=== PATIENT | female | born 1970 | race Caucasian/White ===

== ENCOUNTER → 2019-08-08 13:08 | Outpatient (BNVA) | payer MEDICARE, MEDICAID, SELFPAY | PROVIDERS: Family Provider Student in an Organized Health Care Education/Training Program; PCP Student in an Organized Health Care Education/Training Program; Visit Provider Nurse Practitioner | DX: M47.816 Spondylosis without myelopathy or radiculopathy, lumbar region (principal); M54.16 Radiculopathy, lumbar region; M79.7 Fibromyalgia; M25.511 Pain in right shoulder; M25.512 Pain in left shoulder; F17.210 Nicotine dependence, cigarettes, uncomplicated; Z79.891 Long term (current) use of opiate analgesic | CPT/HCPCS: 99214 ==

== ENCOUNTER → 2019-12-08 09:38 | Outpatient (BNVA) | payer MEDICARE, MEDICAID, SELFPAY | PROVIDERS: Family Provider Student in an Organized Health Care Education/Training Program; PCP Student in an Organized Health Care Education/Training Program; Visit Provider Anesthesiology | DX: G89.29 Other chronic pain (principal); M54.41 Lumbago with sciatica, right side; M54.42 Lumbago with sciatica, left side; M47.816 Spondylosis without myelopathy or radiculopathy, lumbar region; M54.16 Radiculopathy, lumbar region; M54.9 Dorsalgia, unspecified; M79.7 Fibromyalgia; M25.512 Pain in left shoulder; F17.210 Nicotine dependence, cigarettes, uncomplicated; Z79.891 Long term (current) use of opiate analgesic | CPT/HCPCS: 99214 ==

== ENCOUNTER → 2020-01-19 09:13 | Outpatient (BNVA) | payer MEDICARE, MEDICAID, SELFPAY | PROVIDERS: Family Provider Student in an Organized Health Care Education/Training Program; PCP Student in an Organized Health Care Education/Training Program; Visit Provider Anesthesiology | DX: G89.29 Other chronic pain (principal); M47.816 Spondylosis without myelopathy or radiculopathy, lumbar region; M54.16 Radiculopathy, lumbar region; M54.9 Dorsalgia, unspecified; M79.7 Fibromyalgia; F17.210 Nicotine dependence, cigarettes, uncomplicated; Z79.891 Long term (current) use of opiate analgesic | CPT/HCPCS: 99213; 99214 ==

== ENCOUNTER → 2020-03-20 13:37 | Outpatient (BNVA) | payer MEDICARE, MEDICAID, SELFPAY | PROVIDERS: Family Provider Student in an Organized Health Care Education/Training Program; PCP Student in an Organized Health Care Education/Training Program; Visit Provider Anesthesiology | DX: G89.29 Other chronic pain (principal); M47.816 Spondylosis without myelopathy or radiculopathy, lumbar region; M54.16 Radiculopathy, lumbar region; M54.9 Dorsalgia, unspecified; M79.7 Fibromyalgia; F17.210 Nicotine dependence, cigarettes, uncomplicated; Z79.891 Long term (current) use of opiate analgesic | CPT/HCPCS: 99213; 99214 ==

== ENCOUNTER → 2020-05-17 08:53 | Outpatient (BNVA) | payer MEDICARE, MEDICAID, SELFPAY | PROVIDERS: Family Provider Student in an Organized Health Care Education/Training Program; PCP Student in an Organized Health Care Education/Training Program; Visit Provider Anesthesiology | DX: G89.29 Other chronic pain (principal); M54.42 Lumbago with sciatica, left side; M54.41 Lumbago with sciatica, right side; M47.816 Spondylosis without myelopathy or radiculopathy, lumbar region; M54.16 Radiculopathy, lumbar region; M79.7 Fibromyalgia; M54.9 Dorsalgia, unspecified; F17.210 Nicotine dependence, cigarettes, uncomplicated; Z79.891 Long term (current) use of opiate analgesic | CPT/HCPCS: 99213; 99214 ==

== ENCOUNTER → 2020-07-19 08:57 | Outpatient (BNVA) | payer MEDICARE, MEDICAID, SELFPAY | PROVIDERS: Family Provider Student in an Organized Health Care Education/Training Program; PCP Student in an Organized Health Care Education/Training Program; Visit Provider Nurse Practitioner | DX: G89.29 Other chronic pain (principal); M47.816 Spondylosis without myelopathy or radiculopathy, lumbar region; M54.16 Radiculopathy, lumbar region; M54.9 Dorsalgia, unspecified; M79.7 Fibromyalgia; M25.512 Pain in left shoulder; F17.210 Nicotine dependence, cigarettes, uncomplicated; Z79.891 Long term (current) use of opiate analgesic; Z71.6 Tobacco abuse counseling | CPT/HCPCS: 99214 ==

== ENCOUNTER → 2020-09-24 09:01 | Outpatient (BNVA) | payer MEDICARE, MEDICAID, SELFPAY | PROVIDERS: Family Provider Student in an Organized Health Care Education/Training Program; PCP Student in an Organized Health Care Education/Training Program; Visit Provider Nurse Practitioner | DX: G89.29 Other chronic pain (principal); M47.816 Spondylosis without myelopathy or radiculopathy, lumbar region; M54.16 Radiculopathy, lumbar region; M79.7 Fibromyalgia; M54.9 Dorsalgia, unspecified; M25.512 Pain in left shoulder; F17.210 Nicotine dependence, cigarettes, uncomplicated; Z79.891 Long term (current) use of opiate analgesic; Z71.6 Tobacco abuse counseling | CPT/HCPCS: 99213; 99214 ==

== ENCOUNTER → 2020-11-14 10:50 | Outpatient (BNVA) | payer MEDICARE, MEDICAID, SELFPAY | PROVIDERS: Family Provider Student in an Organized Health Care Education/Training Program; PCP Student in an Organized Health Care Education/Training Program; Visit Provider Nurse Practitioner | DX: G89.29 Other chronic pain (principal); M47.816 Spondylosis without myelopathy or radiculopathy, lumbar region; M54.16 Radiculopathy, lumbar region; M54.9 Dorsalgia, unspecified; M25.512 Pain in left shoulder; M79.7 Fibromyalgia; F17.210 Nicotine dependence, cigarettes, uncomplicated; Z79.891 Long term (current) use of opiate analgesic; Z71.6 Tobacco abuse counseling | CPT/HCPCS: 99214 ==

== ENCOUNTER → 2021-01-08 08:56 | Outpatient (BNVA) | payer MEDICARE, MEDICAID, SELFPAY | PROVIDERS: Family Provider Student in an Organized Health Care Education/Training Program; PCP Student in an Organized Health Care Education/Training Program; Visit Provider Nurse Practitioner | DX: G89.29 Other chronic pain (principal); M47.816 Spondylosis without myelopathy or radiculopathy, lumbar region; M54.16 Radiculopathy, lumbar region; M54.9 Dorsalgia, unspecified; M79.7 Fibromyalgia; M25.511 Pain in right shoulder; M25.512 Pain in left shoulder; F17.210 Nicotine dependence, cigarettes, uncomplicated; Z79.891 Long term (current) use of opiate analgesic | CPT/HCPCS: 99214; 99406 ==

== ENCOUNTER → 2021-03-21 09:06 | Outpatient (BNVA) | payer MEDICARE, MEDICAID, SELFPAY | PROVIDERS: Family Provider Student in an Organized Health Care Education/Training Program; PCP Student in an Organized Health Care Education/Training Program; Visit Provider Nurse Practitioner | DX: G89.29 Other chronic pain (principal); M47.816 Spondylosis without myelopathy or radiculopathy, lumbar region; M54.16 Radiculopathy, lumbar region; M25.512 Pain in left shoulder; M25.511 Pain in right shoulder; F17.210 Nicotine dependence, cigarettes, uncomplicated; Z79.891 Long term (current) use of opiate analgesic; Z71.6 Tobacco abuse counseling | CPT/HCPCS: 99213; 99214 ==

== ENCOUNTER → 2021-05-28 11:05 | Outpatient (BNVA) | payer MEDICARE, MEDICAID, SELFPAY | PROVIDERS: Family Provider Student in an Organized Health Care Education/Training Program; PCP Student in an Organized Health Care Education/Training Program; Visit Provider Anesthesiology | DX: G89.29 Other chronic pain (principal); M47.816 Spondylosis without myelopathy or radiculopathy, lumbar region; M54.16 Radiculopathy, lumbar region; M79.7 Fibromyalgia; M25.512 Pain in left shoulder; F17.200 Nicotine dependence, unspecified, uncomplicated; Z79.891 Long term (current) use of opiate analgesic | CPT/HCPCS: 99214 ==

== ENCOUNTER → 2021-07-23 10:36 | Outpatient (BNVA) | payer MEDICARE, MEDICAID, SELFPAY | PROVIDERS: Family Provider Student in an Organized Health Care Education/Training Program; PCP Student in an Organized Health Care Education/Training Program; Visit Provider Anesthesiology | DX: M47.816 Spondylosis without myelopathy or radiculopathy, lumbar region (principal); M25.512 Pain in left shoulder; F17.210 Nicotine dependence, cigarettes, uncomplicated; Z79.891 Long term (current) use of opiate analgesic | CPT/HCPCS: 99213; 99214 ==

== ENCOUNTER → 2023-04-07 08:43 | Outpatient (BNVA) | payer MEDICAID, SELFPAY | PROVIDERS: Family Provider Student in an Organized Health Care Education/Training Program; PCP Family Medicine; Referring Provider Family Medicine; Visit Provider Specialist | DX: G56.02 Carpal tunnel syndrome, left upper limb (principal); Z46.89 Encounter for fitting and adjustment of other specified devices; G56.00 Carpal tunnel syndrome, unspecified upper limb | CPT/HCPCS: 73110; 97760; 99204; L3908 ==

== ENCOUNTER 2023-04-07 09:54 | Outpatient (CLI) | payer MEDICARE, MEDICAID, SELFPAY | END 2023-04-07 09:55 | disposition home or self-care (01) | LOC: SPT 09:55 | PROVIDERS: Family Provider Student in an Organized Health Care Education/Training Program; PCP Family Medicine; Visit Provider Specialist | DX: Z46.89 Encounter for fitting and adjustment of other specified devices (principal); G56.00 Carpal tunnel syndrome, unspecified upper limb | CPT/HCPCS: 97760; 99204; L3908 ==

== ENCOUNTER → 2023-04-09 11:27 | Outpatient (BNVA) | payer MEDICARE, MEDICAID, SELFPAY | PROVIDERS: Family Provider Student in an Organized Health Care Education/Training Program; PCP Family Medicine; Visit Provider Family Medicine | DX: M47.816 Spondylosis without myelopathy or radiculopathy, lumbar region (principal); M54.16 Radiculopathy, lumbar region; G89.29 Other chronic pain; Z01.818 Encounter for other preprocedural examination; G43.009 Migraine without aura, not intractable, without status migrainosus; Z02.89 Encounter for other administrative examinations; Z72.0 Tobacco use; M79.7 Fibromyalgia; Z79.891 Long term (current) use of opiate analgesic | CPT/HCPCS: 80053; 85025; 85610 ==

== ENCOUNTER → 2023-04-16 06:22 | Day surgery (SDC) | payer MEDICARE, MEDICAID, SELFPAY ==
[2023-04-16] VITALS (9 sets, daily range): BP systolic 90–126; BP diastolic 54–80; PULSE 71–79; RESP 7–17; TEMP 36.1–36.8; O2SAT 92–97; BMI 34.7
--- NOTE | 2023-04-16 07:00 | ANES.PREANE2 ---
Pre-Anesthetic Assessment Height/Weight: Height 1.73 m Operation Date: 04/16/23 07:50 Proposed Procedures p LEFT CARPAL TUNNEL RELEASE [id number],G56.00(Left) - Serena rGijalva MD Familial anesthetic complications: None Was Beta Natalee taken within 24 hours: Yes Was Clonidine taken within 24 hours: N/A Last intake: > 8hrs Social Tobacco and No alcohol Exam alert, oriented x 3, clear to auscultation bilaterally and regular rate & rhythm Airway Mallampati: Class III Dentition: other (no teeth) CV/HEM Hypertension GI Gastroesophageal Reflux [place] [facility] Fibromyalgia Anesthetic Plan ASA status: 3 Risk of > 500 ml blood loss (7ml/kg in children): No Medications/Allergies Home Medications Medication Instructions Recorded Confirmed Last Taken Type amlodipine 10 mg tablet 10 mg PO DAILY 08/07/19 04/15/23 04/16/23 History escitalopram oxalate 10 mg tablet 10 mg PO DAILY 08/07/19 04/15/23 04/16/23 History (Lexapro) metoprolol tartrate 25 mg tablet 25 mg PO BID 08/07/19 04/15/23 04/16/23 History promethazine 25 mg tablet 25 mg PO . NEEDED 08/07/19 04/15/23 04/16/23 History sumatriptan succinate 100 mg See Rx Instructions PO DIRECTED 08/07/19 04/15/23 04/12/23 History tablet (Imitrex) cholecalciferol (vitamin D3) 250 10,000 unit PO .1 day 10/03/19 04/15/23 04/15/23 History mcg (10,000 unit) capsule pantoprazole 20 mg tablet,delayed 20 mg PO BID 07/19/20 04/15/23 04/16/23 History release oxybutynin chloride 5 mg 5 mg PO DAILY 05/28/21 04/15/23 04/16/23 History tablet,extended release 24 hr tizanidine 4 mg tablet 8 mg PO QID PRN muscle spasticity 05/28/21 04/15/23 04/15/23 Rx 30 days #240 tabs morphine 15 mg immediate release 15 mg PO BID PRN pain 30 days #60 07/23/21 04/15/23 04/16/23 Rx tablet tabs cock up wrist splint left #1 ea 04/07/23 04/07/23 Unknown Rx amitriptyline 100 mg tablet 150 mg PO DAILY 04/09/23 04/15/23 04/15/23 History aripiprazole 5 mg tablet (Abilify) 15 mg PO DAILY 04/09/23 04/15/23 04/15/23 History cyanocobalamin (vitamin B-12) 50 1,000 mcg PO DAILY 04/09/23 04/15/23 04/15/23 History mcg tablet (Vitamin B-12) diazepam 5 mg tablet 5 mg PO .qhs PRN Insomnia 04/09/23 04/15/23 04/15/23 History eszopiclone 3 mg tablet (Lunesta) 3 mg PO .qhs 04/09/23 04/15/23 04/15/23 History gabapentin 600 mg tablet 300 mg PO QID neuropathy 04/09/23 04/15/23 04/16/23 History magnesium oxide 400 mg PO DAILY 04/09/23 04/15/23 04/15/23 History Allergies Allergy/AdvReac Type Severity Reaction Status Date / Time lisinopril AdvReac HEART RACES Verified 04/09/23 10:47 oxycodone AdvReac NAUSEA Verified 04/09/23 10:47 Sulfa (Sulfonamide AdvReac STOMACH Verified 04/09/23 10:47 Antibiotics) PAIN PFSH Anesthesia Medical History Chronic left shoulder pain Chronic radicular low back pain Common migraine Fibromyalgia Hx of fracture of clavicle (~01/2008) SURGERY [facility] Long-term current use of opiate analgesic Lumbar spondylosis Pain management contract signed Tobacco abuse Surgical History Hx of cholecystectomy (~1999) Hx of hysterectomy (~1998) Hx of oral surgery (~07/21/19) all teeth removed Hx of tubal ligation Family History Family/Other Cancer STOMACH Other Hypertension Denies family history of Anesthesia complication Bleeding disorder Social History Smoking and tobacco/nicotine status: current every day tobacco/nicotine user (LESS THAN 1/2 PPD) cigarettes Packs smoked per day: 0.5 [ Other cigarette details: Using chantix BID] Alcohol intake: never Substance/Drug Use: never Lives independently: Yes Data Anesthesia Cardiac Studies: No Data to Display
[2023-04-16] MEDS: acetaminophen 1,000 MG/100 ML PIGGYBACK 400 MG IV (07:05)
[2023-04-16] MEDS: sodium chloride 0.9% 1,000 ML 30 ML IV (07:07)
[2023-04-16] MEDS: CELEcoxib 200 mg Capsule 400 MG PO (07:08)
--- NOTE | 2023-04-16 08:22 | P.HPUD_ITS ---
Surgery/Procedure H&P Update DATE OF PROCEDURE: April 16, 2023 DATE H&P PERFORMED: 04/09/23 H&P UPDATE INFORMATION: I have reviewed H&P completed within last 30 days, I have examined patient prior to procedure, No changes to prior documentation and [place] [facility] [place] indicated PLANNED PROCEDURE: Operation Date: 04/16/23 07:50 Proposed Procedures p LEFT CARPAL TUNNEL RELEASE [id number],G56.00(Left) - Serena Grijalva MD Related Problem List Diagnoses (1) Carpal tunnel syndrome, left:
[2023-04-16] MEDS: ceFAZolin 2,000 MG in sodium chloride 0.9% (plus) 50 ML 100 MG IV (08:23)
[2023-04-16] MEDS: BUPivacaine 0.5% INJ 30 mL INJECTION (09:02)
--- NOTE | 2023-04-16 10:19 | PM.OP ---
Operative Report Date of procedure: April 16, 2023 Pre-op diagnosis: Left carpal tunnel syndrome Post-op diagnosis: Left carpal tunnel syndrome Post-op findings: Severely compressed left median nerve Procedure done: Left carpal tunnel release Pathology: None Surgeon: Serena Grijalva MD Anesthesia: General (Per LMA, ASA 3) Estimated blood loss (mL): 2 Tourniquet time (min): 16 (At 250 mmHg) IV fluids (mL): 600 Urine output (mL): 0 (No Mccurdy) Complications: None Findings: Significant compression across the carpal canal with hourglassing of the median nerve Brief History: This is a 52 year old female patient presenting today for left carpal tunnel release. She states she has a? nerve conduction study performed in [place] in January ordered by Dr. Baca @ [facility].? She notes that she was advised that she had carpal tunnel syndrome.? She does have numbness and tingling consistent with this diagnosis.? After evaluation in the office, the patient was found to have symptoms and findings consistent with carpal tunnel syndrome. Therefore, after discussion, she wished to proceed with carpal tunnel release. Risks and complications were discussed with her. Consents were signed and questions were answered. Procedure: The patient was brought to the operating theater. The patient had a general anesthetic per LMA, ASA 3. After exsanguination of the arm, the tourniquet was elevated to 250 mmHg for a total tourniquet time of 16 minutes. The patient was also given Ancef 2 g preoperatively. The arm was then prepped and draped with DuraPrep in usual fashion with the arm draped free. A surgical pause was performed. At the time, the surgical pause, we confirmed the site and side of surgery. We also confirmed the patient's identity, appropriate and timely administration of preoperative antibiotics and preoperative surgical markings. An incision was then made along the thenar crease. The incision crossed the wrist joint in a curvilinear fashion. Dissection continued through skin and soft tissues using a scalpel. The palmaris longus was identified along with the transverse carpal ligament. Each of these was released carefully to avoid injury to the median nerve. We were able to dissect gently into the carpal canal which was noted to be quite tight with significant compression across the median nerve. The nerve was visualized and was an hourglass shape. The canal was subsequently palpated to assure there was no bony encroachment upon the canal. There was a quite thickened fibrous tissue within the canal, and this was opened longitudinally as well. The canal was then palpated distally and proximally to assure that my small finger was passed easily without impingement. Finding this to be so, attention was directed to closure. The wound was irrigated with ropivacaine plain. It was then closed with 3-0 nylon in an interrupted mattress fashion. Sterile dressing was then placed consisting of Dermabond, OpSite, fluffed fluffs, sterile soft roll, and an Андрей wrap. The tourniquet was released after 16 minutes. There were no complications. There were no specimens. The procedure was well tolerated. Plan is the patient will be discharged home. Related Problem List Diagnoses (1) Carpal tunnel syndrome, left:
--- NOTE | 2023-04-16 10:45 | ANE.PACU2 ---
Inpatient post-anesthesia follow up: Airway intact: Yes Vital signs: Temperature 97 F Pulse Rate 79 Respiratory Rate 17 Blood Pressure 115/75 Pulse Oximetry 92 Oxygen Delivery Me thod Room Air Oxygen Flow Rate Fraction of Inspir ed Oxygen Hydration adequate: Yes Nausea and vomiting: No Pain level: 1 Mental status: Baseline
== END | disposition home or self-care (01) ==
PROVIDERS: PCP Family Medicine; Visit Provider Specialist
PROC: (CPT 64721; principal; 2023-04-16 07:40)
DX: G56.02 Carpal tunnel syndrome, left upper limb (principal); I10 Essential (primary) hypertension; K21.9 Gastro-esophageal reflux disease without esophagitis; M79.7 Fibromyalgia; Z79.01 Long term (current) use of anticoagulants; F17.210 Nicotine dependence, cigarettes, uncomplicated
CPT/HCPCS: 64721; J0131; J0690; J1100; J2371; J2405; J2704; J3010; J3490; J7030

== ENCOUNTER → 2023-04-29 08:47 | Outpatient (BNVA) | payer MEDICARE, MEDICAID, SELFPAY | PROVIDERS: PCP Family Medicine; Visit Provider Nurse Practitioner | DX: Z98.890 Other specified postprocedural states (principal); G56.02 Carpal tunnel syndrome, left upper limb | CPT/HCPCS: 99024 ==

== ENCOUNTER 2023-10-29 04:56 | Observation (INO) | payer MEDICARE, MEDICAID, SELFPAY ==
[2023-10-29] VITALS (31 sets, daily range): BP systolic 94–143; BP diastolic 56–85; PULSE 80–94; RESP 10–22; TEMP 36.6–38.1; O2SAT 90–98
--- NOTE | 2023-10-29 05:14 | P.HP_ITS ---
Providers/Chief Complaint Admitting Physician: Andres Stanton MD Chief Complaint: Tib\Fib Fractual\Fall History of Present Illness Shea Madrid is a 53 year old female with a past medical history significant for chronic pain on chronic opiates, fibromyalgia, tobacco use disorder, anxiety, hypertension, carpal tunnel syndrome, multiple other comorbidities who transfers from [facility] after presenting with mechanical fall and subsequent right lower leg pain. Patient reports she was in her usual state of health until last night. She states she was walking inside from her patio when her foot caught the trim between the door and the carpet. She fell and hit her leg. She subsequently had severe pain rated 10 out of 10 initially. She presented to the outside hospital where she reportedly had a tib-fib fracture on the right. No plain films were sent with patient. She currently rates her pain severe. She is on chronic opiates. She is currently being weaned as outpatient. She was taken off of long-acting morphine last month. She remains on short acting morphine. At the outside hospital, patient was found to have soft blood pressures. She has a recent history of decreasing blood pressures. She has been taken off of losartan and amlodipine recently. She is currently remains on metoprolol. She was given IV fluids with resolution of soft blood pressures. Review of Systems Narrative: A complete review of systems was obtained and is negative except as stated in HPI. Medications/Allergies Home Medications Medication Instructions Recorded Confirmed Last Taken Type amlodipine 10 mg tablet 10 mg PO DAILY 08/07/19 04/29/23 04/16/23 History escitalopram oxalate 10 mg tablet 10 mg PO DAILY 08/07/19 04/29/23 04/16/23 History (Lexapro) metoprolol tartrate 25 mg tablet 25 mg PO BID 08/07/19 04/29/23 04/16/23 History promethazine 25 mg tablet 25 mg PO . NEEDED 08/07/19 04/29/23 04/16/23 History sumatriptan succinate 100 mg See Rx Instructions PO DIRECTED 08/07/19 04/29/23 04/12/23 History tablet (Imitrex) cholecalciferol (vitamin D3) 250 10,000 unit PO .1 day 10/03/19 04/29/23 04/15/23 History mcg (10,000 unit) capsule pantoprazole 20 mg tablet,delayed 20 mg PO BID 07/19/20 04/29/23 04/16/23 History release oxybutynin chloride 5 mg 5 mg PO DAILY 05/28/21 04/29/23 04/16/23 History tablet,extended release 24 hr tizanidine 4 mg tablet 8 mg (2 x 4 mg) PO QID PRN muscle 05/28/21 04/29/23 04/15/23 Rx spasticity 30 days #240 tabs morphine 15 mg immediate release 15 mg PO BID PRN pain 30 days #60 07/23/21 04/29/23 04/16/23 Rx tablet tabs cock up wrist splint left #1 ea 04/07/23 04/29/23 Unknown Rx amitriptyline 100 mg tablet 150 mg PO DAILY 04/09/23 04/29/23 04/15/23 History aripiprazole 5 mg tablet (Abilify) 15 mg PO DAILY 04/09/23 04/29/23 04/15/23 History cyanocobalamin (vitamin B-12) 50 1,000 mcg PO DAILY 04/09/23 04/29/23 04/15/23 History mcg tablet (Vitamin B-12) diazepam 5 mg tablet 5 mg PO .qhs PRN Insomnia 04/09/23 04/29/23 04/15/23 History eszopiclone 3 mg tablet (Lunesta) 3 mg PO .qhs 04/09/23 04/29/23 04/15/23 History gabapentin 600 mg tablet 300 mg PO QID neuropathy 04/09/23 04/29/23 04/16/23 History magnesium oxide 400 mg PO DAILY 04/09/23 04/29/23 04/15/23 History Allergies Allergy/AdvReac Type Severity Reaction Status Date / Time lisinopril AdvReac HEART RACES Verified 04/29/23 09:07 oxycodone AdvReac NAUSEA Verified 04/29/23 09:07 Sulfa (Sulfonamide AdvReac STOMACH Verified 04/29/23 09:07 Antibiotics) PAIN PFSH Acute PFSH: Medical History Long-term current use of opiate analgesic Pain management contract signed Common migraine Fibromyalgia Tobacco abuse Chronic left shoulder pain Lumbar spondylosis Chronic radicular low back pain Hx of fracture of clavicle (~01/2008) [place] [facility] Surgical History Status post carpal tunnel release Left wrist. Date of surgery: April 16, 2023 Surgeon: Dr. Serena Grijalva MD Hx of hysterectomy (~1998) Hx of tubal ligation Hx of cholecystectomy (~1999) Hx of oral surgery (~07/21/19) all teeth removed Family History Family/Other Cancer STOMACH Other Hypertension Denies family history of Anesthesia complication Bleeding disorder Social History Smoking and tobacco/nicotine status: current every day tobacco/nicotine user (LESS THAN 1/2 PPD) cigarettes Packs smoked per day: 0.5 [ Other cigarette details: Using chantix BID] Alcohol intake: never Substance/Drug Use: never Lives independently: Yes Physical Exam Narrative: General: Patient is awake. Appears very fatigued. Head: Normocephalic. Atraumatic. EOM intact. Neck: No JVD. Cardiovascular: RRR. No gallops. No murmurs. Lungs: Clear to auscultation, no use of accessory muscles, no crackles or wheezes. Skin: No jaundice. No rashes. Abdomen: Normal bowel sounds, abdomen soft and nontender. Genito Urinary: Genital exam not performed since complaints not related. Rectal: Rectal exam not performed since no symptoms indicated blood loss. Extremities: No cyanosis or clubbing. Musculoskeletal: Right lower extremity is in a cast. Neurological: Moves all 4 extremities. No myoclonus. A&P Assessment and plan (1) Tibia/fibula fracture: Right-sided tib-fib fracture from mechanical fall No plain films sent with patient, x-rays ordered Orthopedics consulted prior to transfer, consult order placed N.p.o. for orthopedic evaluation IV fluids while n.p.o. IV analgesics as needed Bedrest for now (2) Long-term current use of opiate analgesic: Patient weaned off long-acting morphine last months She continues to use short acting morphine Plan to restart home pain medications after home med list is updated (3) Fibromyalgia: Plan to restart home pain medications after home med list is updated (4) Tobacco abuse: Patient is active cigarette smoker Nicotine is known to delay wound healing (5) Hypertension: Patient recently taken off losartan and amlodipine Blood pressure soft outside hospital Monitor blood pressure closely Hold antihypertensives for now Plan DVT prophylaxis: Holding for orthopedic evaluation this morning. CODE STATUS: Full code Attestations Medical Necessity Statement*: Patient presents as transfer from outside hospital for treatment of tib-fib fracture with expected hospitalization not to cross 2 midnights for orthopedic evaluation. Coding Level of Care Code Acute Code for [facility] Diagnoses Tibia/fibula fracture S82.209A; S82.409A Long-term current use of opiate analgesic Z79.891 Fibromyalgia M79.7 Tobacco abuse Z72.0 Hypertension I10
[2023-10-29] MEDS: dextrose 5%-sod chloride 0.45% 1,000 ML 75 ML IV (05:41)
[2023-10-29] MEDS: morphine 4 mg/mL SDV 1 mL IVP (05:44)
--- NOTE | 2023-10-29 05:48 | XRR_ITS ---
PROCEDURE INFORMATION: Exam: XR Right Tibia and Fibula Exam date and time: 10/29/2023 7:31 AM Age: 53 years old Clinical indication: Pain; Lower leg; Right; Additional info: Reported fracture TECHNIQUE: Imaging protocol: Radiologic exam of the right tibia and fibula. Views: 2 views. COMPARISON: DX XR tibia fibula RT 2V [id number] 10/28/2023 11:24 PM FINDINGS: Bones/joints: Interval placement of casting material, which obscures underlying fine bony detail. The distal tibial shaft comminuted fractur remains [id number]-[id number] displaced, with perhaps slightly increased bony overlap. The comminuted proximal fibular shaft fracture demonstrates grossly unchanged alignment. No dislocation. Soft tissues: Normal. XR/XR tibia fibula RT 2V [id number] IMPRESSION: Status post casting of proximal fibular and distal tibial fractures as above.
[2023-10-29 06:35] LABS: Basophils % 0.5 %; Eosinophils # 0.1 10^3/uL (0.0-0.8); Eosinophils % 0.8 %; Hematocrit 39.5 % (36-47); Lymphocytes # 2.3 10^3/uL (0.8-4.8); Lymphocytes % 26.7 %; Mean Corpuscular HGB Conc 32.7 g/dL (30-55); Mean Corpuscular Hemoglobin 29.5 pg (27-33); Mean Corpuscular Volume 90.4 fl (85-98); Mean Platelet Volume 9.9 fL (7.4-10.4); Monocytes # 0.4 10^3/uL (0.2-0.9); Monocytes % 4.9 %; Neutrophils # 5.85 10^3/uL (1.8-7.7); Neutrophils % 66.9 %; Nucleated Red Blood Cells % 0 %; Platelet Count 215 10^3/cmm (157-399); Red Blood Count 4.37 10^6/uL (3.85-5.65); Red Cell Distribution Width 11.9 % (12.1-15.1); White Blood Count 8.75 10^3/uL (3.29-11.43)
--- NOTE | 2023-10-29 06:50 | CTR_ITS ---
PROCEDURE INFORMATION: Exam: CT Right Lower Extremity Without Contrast; Lower Leg Exam date and time: 10/29/2023 8:26 AM Age: 53 years old Clinical indication: Injury or trauma; Fall; Fracture, traumatic; Closed fracture; Fibula and tibia; Right; Additional info: Distal tibia fracture, rule out posterior malleolus involvem, please include knee and past the ankle to rule out posterior TECHNIQUE: Imaging protocol: CT of the right lower extremity without contrast was performed. Exam focused on the lower leg. Radiation optimization: All CT scans at this facility use at least one of these dose optimization techniques: automated exposure control; mA and/or kV adjustment per patient size (includes targeted exams where dose is matched to clinical indication); or iterative reconstruction. COMPARISON: CR XR tibia fibula RT 2V [id number] 10/29/2023 7:31 AM RADIATION DOSE METRICS: Total DLP (mGy-cm): 701.13 FINDINGS: Bones/joints: Redemonstrated comminuted, moderately displaced recent proximal tibial diaphysis fracture. Mildly displaced Berg B spiral fracture of the distal fibular metadiaphysis; this fracture may be old or subacute, as there appears to be partial bridging callus, with corticated fracture margins and several tiny well corticated fracture fragments/intra-articular loose bodies within the lateral ankle mortise joint space. . Subtle nondisplaced fracture of the medial cuneiform. Nondisplaced fracture of the basilar 2nd metatarsal. Chip fracture off the basilar 1st metatarsal. 9 mm calcification within the insertional tibialis posterior fibers onto the navicular bone, compatible with sequela calcific tendinosis. Spiral comminuted distal tibial diaphysis fracture demonstrates 1 cm bony overlap, with [id number] displacement of fragments. Nondisplaced posterior malleolus fracture. Mild medial compartment DJD of the right knee. Small joint effusion. Talar dome and subtalar joint are intact. Localized subcutaneous ecchymosis overlying the lateral malleolus. Soft tissues: Sinus tarsi is intact. Diffuse soft tissue swelling and edema. CT/CT lower leg RT wo con* [id number] IMPRESSION: 1. Recent fractures of the posterior malleolus, distal tibia, medial cuneiform, and basilar 1st and 2nd st metatarsal as detailed above. 2. Distal fibular Berg B spiral fracture appears old or subacute, as above. 3. Evidence of calcific tendinosis involving the tibialis posterior insertional fibers. 4. Small joint effusion 5. Diffuse subcutaneous soft tissue swelling and edema
[2023-10-29 06:51] LABS: Alanine Aminotransferase 16 U/L (0-33); Albumin Level 3.6 g/dL (3.5-5.2); Alkaline Phosphatase 83 U/L (35-105); Aspartate Amino Transferase 19 U/L (0-32); Blood Urea Nitrogen 17 mg/dL (6-20); Calcium 8.7 mg/dL (8.5-10.5); Carbon Dioxide 26 mmol/L (22-29); Chloride 104 mmol/L (98-107); Creatinine Clr Calc Pharmacy 69.1473; Globulin 2.7 g/dL (1.3-4.6); Glomerular Filtration Rate 51.6 mL/min (90-130); Glucose 130 mg/dL (65-115); Magnesium 2.1 mg/dL (1.7-2.3); Osmolality Calculated 293 mOsm/kg (285-295); Phosphorus 4.7 mg/dL (2.5-4.5); Sodium 140 mmol/L (136-145); Total Bilirubin 0.3 mg/dL (0.15-1.2); Total Protein 6.3 g/dL (6.6-8.7)
--- NOTE | 2023-10-29 06:52 | P.CONIM_ITS ---
Providers/Reason For Consult 2 Consulting Physician/Specialty*: Hans Rossi DO/orthopedic surgery Reason for Consult*: Right distal tibia with a proximal fibula fracture Requesting Physician: Dr. Stanton Attending Physician: Andres Stanton MD History of Present Illness History of Present Illness Shea Madrid is a 53 year old female transferred from an outside facility [facility] secondary to having a closed distal third tibial shaft fracture with an associated proximal fibula fracture. Injury was close neurovascular intact per the emergency department in outside facility was placed in a splint and orthopedics was consulted for treatment recommendations. Orthopedics agreed for transfer to this facility per patient's request as well as hospitalist admitted patient is primary. Patient states that she got her foot caught on the transition of her edwin caught her toe causing her ankle to twist and she fell backwards and felt a pop in her right lower leg. X-rays at outside facility confirm fracture. She was placed in a splint and subsequently transferred. She denies any other associated symptoms or any other pain elsewhere or any other injury. Patient denies any fevers chills chest pain shortness of breath nausea or vomiting. Medications/Allergies Home Medications Medication Instructions Recorded Confirmed Last Taken Type amlodipine 10 mg tablet 10 mg PO DAILY 08/07/19 04/29/23 04/16/23 History escitalopram oxalate 10 mg tablet 10 mg PO DAILY 08/07/19 04/29/23 04/16/23 History (Lexapro) metoprolol tartrate 25 mg tablet 25 mg PO BID 08/07/19 04/29/23 04/16/23 History promethazine 25 mg tablet 25 mg PO . NEEDED 08/07/19 04/29/23 04/16/23 History sumatriptan succinate 100 mg See Rx Instructions PO DIRECTED 08/07/19 04/29/23 04/12/23 History tablet (Imitrex) cholecalciferol (vitamin D3) 250 10,000 unit PO .1 day 10/03/19 04/29/23 04/15/23 History mcg (10,000 unit) capsule pantoprazole 20 mg tablet,delayed 20 mg PO BID 07/19/20 04/29/23 04/16/23 History release oxybutynin chloride 5 mg 5 mg PO DAILY 05/28/21 04/29/23 04/16/23 History tablet,extended release 24 hr tizanidine 4 mg tablet 8 mg (2 x 4 mg) PO QID PRN muscle 05/28/21 04/29/23 04/15/23 Rx spasticity 30 days #240 tabs morphine 15 mg immediate release 15 mg PO BID PRN pain 30 days #60 07/23/21 04/29/23 04/16/23 Rx tablet tabs cock up wrist splint left #1 ea 04/07/23 04/29/23 Unknown Rx amitriptyline 100 mg tablet 150 mg PO DAILY 04/09/23 04/29/23 04/15/23 History aripiprazole 5 mg tablet (Abilify) 15 mg PO DAILY 04/09/23 04/29/23 04/15/23 History cyanocobalamin (vitamin B-12) 50 1,000 mcg PO DAILY 04/09/23 04/29/23 04/15/23 History mcg tablet (Vitamin B-12) diazepam 5 mg tablet 5 mg PO .qhs PRN Insomnia 04/09/23 04/29/23 04/15/23 History eszopiclone 3 mg tablet (Lunesta) 3 mg PO .qhs 04/09/23 04/29/23 04/15/23 History gabapentin 600 mg tablet 300 mg PO QID neuropathy 04/09/23 04/29/23 04/16/23 History magnesium oxide 400 mg PO DAILY 04/09/23 04/29/23 04/15/23 History Allergies Allergy/AdvReac Type Severity Reaction Status Date / Time lisinopril AdvReac HEART RACES Verified 04/29/23 09:07 oxycodone AdvReac NAUSEA Verified 04/29/23 09:07 Sulfa (Sulfonamide AdvReac STOMACH Verified 04/29/23 09:07 Antibiotics) PAIN Current Medications Generic Name Dose Route Start Last Admin Trade Name Freq PRN Reason Stop Dose Admin Dextrose/Sodium Chloride 1,000 mls @ 75 mls/hr 10/29/23 05:15 10/29/23 05:41 Dextrose 5%-Sod Chloride 0.45% IV 75 mls/hr .[id number] ROMAN Administration Morphine Sulfate 4 mg 10/29/23 05:10 10/29/23 05:44 Morphine 4 Mg/Ml Sdv 1 Ml IVP 4 mg Q4H PRN Administration SEVERE PAIN PFSH Acute 2 PFSH: Medical History Long-term current use of opiate analgesic Pain management contract signed Common migraine Fibromyalgia Tobacco abuse Chronic left shoulder pain Lumbar spondylosis Chronic radicular low back pain Hx of fracture of clavicle (~01/2008) SURGERY [facility] Surgical History Status post carpal tunnel release Left wrist. Date of surgery: April 16, 2023 Surgeon: Dr. Serena Grijalva MD Hx of hysterectomy (~1998) Hx of tubal ligation Hx of cholecystectomy (~1999) Hx of oral surgery (~07/21/19) all teeth removed Family History Family/Other Cancer STOMACH Other Hypertension Denies family history of Anesthesia complication Bleeding disorder Social History Smoking and tobacco/nicotine status: current every day tobacco/nicotine user (LESS THAN 1/2 PPD) cigarettes Packs smoked per day: 0.5 [ Other cigarette details: Using chantix BID] Alcohol intake: never Substance/Drug Use: never Lives independently: Yes Vitals/I&O/Wt Last Vital Signs Temp 98.3 F 10/29/23 05:45 Pulse 80 10/29/23 05:45 Resp 16 10/29/23 05:45 BP 132/85 10/29/23 05:45 Pulse Ox 98 10/29/23 05:45 O2 Del Method Nasal Cannula 10/29/23 05:45 O2 Flow Rate 2 10/29/23 05:45 Weight last 48 hrs Weight 214 lb 1 oz Weight 214 lb 1.6 oz Physical Exam 2 Narrative: Orthopedic examination: Examination of the right lower extremity is limited secondary to patient being in a splint to the lower extremity. Examination of the right hip negative logroll no tenderness palpation negative pelvic compression test no tenderness palpation over the femur or the knee with no palpable joint effusion. Splints on in place her toes are warm well-perfused brisk capillary refill less than 2 seconds. She is able to wiggle the toes and does endorse sensations intact light touch to the toes but unable to perform full sensory and motor assessment given patient is currently in splint. Unable to palpate pulse secondary to splint, but toes warm well-perfused. Secondary survey examination demonstrates unremarkable for any tenderness to palpation or deformities of the bilateral upper extremity joints or the left lower extremity joints. Mild paraspinal tenderness to palpation which she states is her baseline her lumbar spine. Data 10/29/23 06:24 10/29/23 06:24 Xray Ortho: My impression: X-rays reviewed in person interpreted from by myself from an outside facility demonstrates patient has a right tibial fib fracture with a distal third tibia fracture and associated proximal third fracture of the fibula. No ankle involvement appreciated. Will order CT scan to rule out posterior malleolus involvement A&P Assessment and plan (1) Tibia/fibula fracture: Plan Plan for OR today for right suprapatellar tibial nail Stat CT scan to rule out posterior malleolus involvement of the right ankle N.p.o. since midnight Maintain splint Nonweightbearing Pain control Review images Plan proceed to the OR today MDM: Shea is a pleasant 53-year-old female who was transferred from an outside facility secondary to tib-fib fracture. This is a closed injury appears to be neurovascular intact on my examination is limited secondary to patient already being in a splint but was confirmed this was her exam findings pretransfer from outside facility. At this point in time given the significant displacement, long bone fracture as well as patient's age and mobilization we reviewed the risk benefits complication alternatives of surgery and through shared decision- making elects patient elects proceed with surgical intervention and feel this would better benefit this patient secondary to better alignment to increase rates of healing as well as goals of earlier mobilization. Risk of surgery include not limited to make a better make it worse injury nerves vessels or tendons, infection, malunion, nonunion, hardware failure prominence, knee pain. Understanding risk of surgery she elects proceed all questions been answered at this time. Will get patient added onto the OR today for a right suprapatellar tibial nail. We did talk about treating the fibula fracture closed as this is significantly proximal and will do well with this once this is in better alignment from the tibia. Patient understands and agrees with current plan. All questions answered. Coding Level of Care Code Acute Code for [facility] Fwd Diagnoses Tibia/fibula fracture S82.209A; S82.409A Time Spent (min) 45
[2023-10-29 06:54] LABS: Anion Gap 14.3 (5-19); Potassium 4.3 mmol/L (3.5-5.1)
[2023-10-29] MEDS: ketorolac 30 mg/mL INJ 15 MG IVP ×2 (08:59→17:52)
[2023-10-29] MEDS: acetaminophen 1,000 MG/100 ML PIGGYBACK 400 MG IV (09:43)
[2023-10-29] MEDS: ketorolac 30 mg/mL INJ IVP (09:44)
--- NOTE | 2023-10-29 09:45 | P.ANESASSM_ITS ---
Pre-Anesthetic Assessment Height/Weight: Height 1.7 m Weight 97.097 kg Temp Pulse Resp BP Pulse Ox O2 Del Method O2 Flow Rate 97.9 F 87 16 128/78 96 Nasal Cannula 2 10/29/23 07:17 10/29/23 07:17 10/29/23 07:17 10/29/23 07:17 10/29/23 07:17 10/29/23 07:17 10/29/23 07:17 Preop Diagnosis: Right tibia-fibular fracture Operation Date: 10/29/23 10:00 Proposed Procedures p IM Tibial Nail Insertion(Right) - Hans Rossi, DO Was Beta Natalee taken within 24 hours: Yes Last intake: Intake Last Liquid Date 10/28/23 Last Liquid Time 21:30 Last Solid Date 10/28/23 Last Solid Time 18:00 Social Tobacco and No alcohol Exam alert, oriented x 3, clear to auscultation bilaterally and regular rate & rhythm Airway Submandibular: within normal limits Cervical ROM: within normal limits Mallampati: Class II Pulmonary Chronic Obstructive Pulmonary Disease CV/HEM Hypertension GI Gastroesophageal Reflux Disease Musc/skel Lower Back Pain and Osteoarthritis/DJD Chronic opiate use Anesthetic Plan ASA status: 3 Anesthesia: General Medications/Allergies Home Medications Medication Instructions Recorded Confirmed Last Taken Type escitalopram oxalate 10 mg tablet 10 mg PO DAILY 08/07/19 10/29/23 04/16/23 History (Lexapro) metoprolol tartrate 25 mg tablet 25 mg PO BID 08/07/19 10/29/23 04/16/23 History promethazine 25 mg tablet 25 mg PO Q4H PRN Nausea And 08/07/19 10/29/23 04/16/23 History Vomiting sumatriptan succinate 100 mg See Rx Instructions PO DIRECTED 08/07/19 10/29/23 04/12/23 History tablet (Imitrex) cholecalciferol (vitamin D3) 250 10,000 unit PO .1 day 10/03/19 10/29/23 04/15/23 History mcg (10,000 unit) capsule pantoprazole 20 mg tablet,delayed 20 mg PO BID 07/19/20 10/29/23 04/16/23 History release oxybutynin chloride 5 mg 5 mg PO DAILY 05/28/21 10/29/23 04/16/23 History tablet,extended release 24 hr tizanidine 4 mg tablet 8 mg (2 x 4 mg) PO QID PRN muscle 05/28/21 10/29/23 04/15/23 Rx spasticity 30 days #240 tabs morphine 15 mg immediate release 15 mg PO BID PRN pain 30 days #60 07/23/21 10/29/23 04/16/23 Rx tablet tabs cock up wrist splint left #1 ea 04/07/23 10/29/23 Unknown Rx amitriptyline 100 mg tablet 150 mg PO DAILY 04/09/23 10/29/23 04/15/23 History aripiprazole 5 mg tablet (Abilify) 15 mg PO DAILY 04/09/23 10/29/23 04/15/23 History cyanocobalamin (vitamin B-12) 50 1,000 mcg PO DAILY 04/09/23 10/29/23 04/15/23 History mcg tablet (Vitamin B-12) diazepam 5 mg tablet 5 mg PO QPM PRN Insomnia 04/09/23 10/29/23 04/15/23 History eszopiclone 3 mg tablet (Lunesta) 3 mg PO QPM 04/09/23 10/29/23 04/15/23 History gabapentin 600 mg tablet 300 mg PO QID neuropathy 04/09/23 10/29/23 04/16/23 History magnesium oxide 400 mg PO DAILY 04/09/23 10/29/23 04/15/23 History trazodone 100 mg tablet 200 mg PO BEDTIME 10/29/23 10/29/23 Unknown History Allergies Allergy/AdvReac Type Severity Reaction Status Date / Time lisinopril AdvReac HEART RACES Verified 10/29/23 07:56 oxycodone AdvReac NAUSEA Verified 10/29/23 07:56 Sulfa (Sulfonamide AdvReac STOMACH Verified 10/29/23 07:56 Antibiotics) PAIN Current Medications Generic Name Dose Route Start Last Admin Trade Name Freq PRN Reason Stop Dose Admin Dextrose/Sodium Chloride 1,000 mls @ 75 mls/hr 10/29/23 05:15 10/29/23 05:41 Dextrose 5%-Sod Chloride 0.45% IV 75 mls/hr .[id number] ROMAN Administration Ketorolac Tromethamine 15 mg 10/29/23 05:10 10/29/23 08:59 Ketorolac 30 Mg/Ml Inj IVP 11/03/23 05:09 15 mg Q6H PRN Administration MODERATE PAIN Ketorolac Tromethamine 30 mg 10/29/23 09:45 10/29/23 09:44 Ketorolac 30 Mg/Ml Inj IVP 10/29/23 09:46 30 mg ONCE ONE Administration Morphine Sulfate 4 mg 10/29/23 05:10 10/29/23 05:44 Morphine 4 Mg/Ml Sdv 1 Ml IVP 4 mg Q4H PRN Administration SEVERE PAIN PFSH Anesthesia Medical History Long-term current use of opiate analgesic Pain management contract signed Common migraine Fibromyalgia Tobacco abuse Chronic left shoulder pain Lumbar spondylosis Chronic radicular low back pain Hx of fracture of clavicle (~01/2008) SURGERY [facility] Surgical History Status post carpal tunnel release Left wrist. Date of surgery: April 16, 2023 Surgeon: Dr. Serena Grijalva MD Hx of hysterectomy (~1998) Hx of tubal ligation Hx of cholecystectomy (~1999) Hx of oral surgery (~07/21/19) all teeth removed Family History Family/Other Cancer STOMACH Other Hypertension Denies family history of Anesthesia complication Bleeding disorder Social History Smoking and tobacco/nicotine status: current every day tobacco/nicotine user (LESS THAN 1/2 PPD) cigarettes Packs smoked per day: 0.5 [ Other cigarette details: Using chantix BID] Alcohol intake: never Substance/Drug Use: never Lives independently: Yes Data Anesthesia 10/29/23 06:24 10/29/23 06:24 Short CBC 10/29/23 Range/Units 06:24 WBC 8.75 (3.29-11.43) 10^3/uL Hgb 12.90 (11.27-16.99) g/dL Hct 39.5 (36-47) % MCV 90.4 (85-98) fl Plt Count 215 (157-399) 10^3/cmm Neut % (Auto) 66.9 % Neut # (Auto) 5.85 (1.8-7.7) 10^3/uL BMP 10/29/23 06:24 Sodium 140 Potassium 4.3 Chloride 104 Carbon Dioxide 26 BUN 17 Creatinine 1.1 H Glucose 130 H Calcium 8.7 Liver Function 10/29/23 Range/Units 06:24 Total Bilirubin 0.3 (0.15-1.2) mg/dL AST 19 (0-32) U/L ALT 16 (0-33) U/L Alkaline Phosphatase 83 (35-105) U/L Albumin 3.6 (3.5-5.2) g/dL Blood Bank 10/29/23 08:16 Blood Type O Positive Rho(D) Type Rh positive Antibody Screen Negative Cardiac Studies: 2 No Data to Display
[2023-10-29] MEDS: sodium chloride 0.9% 1,000 ML 30 ML (09:46)
--- NOTE | 2023-10-29 10:02 | W.PM.OPSUD ---
Surgery/Procedure H&P Update DATE OF PROCEDURE: October 29, 2023 DATE H&P PERFORMED: 10/29/23 H&P UPDATE INFORMATION: I have reviewed H&P completed within last 30 days, I have examined patient prior to procedure and No changes to prior documentation CHANGES TO PREVIOUS DOCUMENTATION: Review of patient CT scan does demonstrate a less than 10% posterior malleolus this is more consistent with a ligamentous and the fracture fragment is so small should be hard to even capture with a single isolated screw I feel this should be fine to be left alone we will monitor this intraoperatively. As far as the proximal fibula this looks once the tibia is in better alignment which should heal on its own however there did appear to be an incomplete distal fibula fracture plan will be for stressing the syndesmosis and distal fibula after the tibial fixation and we added onto the consent today for a possible distal fibula open reduction internal fixation if this is unstable with planned ORIF in that case. Otherwise plan will be for tibia nail short leg splint and plan for nonweightbearing for 6 weeks. Patient understands and agrees with current plan. Questions answered PREOP DIAGNOSIS: Right tibia-fibular fracture PRIMARY INDICATION FOR PROCEDURE: Right tib-fib fx PLANNED PROCEDURE: Operation Date: 10/29/23 10:00 Proposed Procedures p IM Tibial Nail Insertion(Right) - Hans Rossi DO
[2023-10-29] MEDS: ceFAZolin 2,000 MG in sodium chloride 0.9% (plus) 50 ML 100 MG IV ×2 (10:05→17:51)
[2023-10-29 10:19] LABS: Urine Appearance Hazy (CLEAR); Urine Color Yellow (Yellow); pH Urine 5 (5-7)
[2023-10-29 10:20] LABS: Add Urine Culture? No; Add Urine Microscopic? YES; Bacteria Urine 2+ /hpf; Bilirubin Urine 1+ (Negative); Blood Urine Neg (Negative); Glucose Urine UA Norm (Normal); Ketones Urine Negative (Negative); Leukocyte Esterase Urine Negative (Negative); Nitrate Urine Negative (Negative); Protein Urine Trace (Negative); Squamous Epithelial Cell Urine 0-4 /hpf (0-5); Urobilinogen Urine Norm (Negative)
[2023-10-29] MEDS: tranexamic acid 1,000 mg/10mL SDV 1000 MG IV (10:30)
--- NOTE | 2023-10-29 11:35 | PM.MISC ---
Miscellaneous Note Note: Postop day 0 Status post intervention Start diet and DVT prophylaxis after surgery Resume metoprolol for blood pressure along antipsychotics as well
--- NOTE | 2023-10-29 12:05 | XR_ITS ---
WS: [id number] XR tibia fibula RT 2V [id number] REASON FOR EXAM: OR PICS FINDINGS: Long intramedullary tibial milton with transverse screws proximally and distally with fixation of obliqu e distal third tibial fracture. The surgical appliances are intact and in proper position and alignment. Fracture fragments are in proper position and alignment. XR/XR tibia fibula RT 2V [id number] IMPRESSION: Distal right tibial fracture with fixation without abnormality.
--- NOTE | 2023-10-29 12:23 | W.PM.BPON ---
Date of Procedure: [10/29/2023] Surgeon: Hans Rossi DO Cloth Finishing Range Back Tender(s): None Procedure(s) performed: Right distal tibia suprapatellar tibial intramedullary nail Right proximal fibula fracture closed treatment Right distal fibula fracture closed treatment Right posterior malleolus fracture closed treatment Findings of the procedure(s): Patient underwent procedure as planned without issues or complications stressed the ankle syndesmosis and this was found to be stable no ORIF of the fibula needed to be performed. Will let this heal as it is already in good alignment patient currently in standard AO splint and will keep this on and in place for 2 weeks. She will return to floor postoperatively and follow-up in the office in 2 weeks upon discharge. Estimated blood loss: 50 mL Specimen(s) removed: None Post-operative diagnosis: Right distal third tibial shaft fracture, proximal fibula fracture, distal fibula fracture, posterior malleolus fracture
--- NOTE | 2023-10-29 12:25 | PM.OP ---
Operative Report Date of procedure: October 29, 2023 Surgeon: Hans Rossi DO Procedure: Preop Diagnosis Displaced right tibial shaft fracture, right proximal fibula fracture, small nondisplaced incomplete distal fibula fracture, small posterior malleolus fracture Post-op diagnosis: Same Post-op findings: See procedure note Procedure done: Right tibial shaft open reduction and suprapatellar intramedullary nail fixation Closed treatment with splint application of right proximal fibula fracture, right incomplete distal fibula fracture, small right posterior malleolus fracture Implants: 11 x 360 mm T2 alpha [place] nail 2x proximal 5.0 mm locking screws 45 and 55 mm 3x distal interlocking screws 35 mm, 45 mm, 37.5 mm Specimens removed/disposition: None Pathology: None Surgeon: Hans Rossi DO Estimated blood loss: 50 mL Tourniquet none IV fluids: see anesthesia record Complications: None Findings: See procedure note in detail Condition: stable Disposition: floor Brief History: Patient a 53-year-old female who sustained a distal third tibial shaft fracture with associated proximal third fibular shaft fracture. Given the significance of rotation shortening and chance of early mobility recommended surgical intervention. Prior to proceeding advanced imaging was performed CT scan of the right knee showed a nondisplaced posterior malleolus fracture less than 10% as well as an incomplete distal fibula fracture. We will assess these intraoperatively but no need for screw placement on the posterior malleolus as this is a small fragment.. patient was educated about her diagnosis and treatment options. Detail that the risk benefits complication alternatives to surgical and nonsurgical intervention. We detail out her risks of but are not limited to make it better, make it worse, malunion, nonunion, infection, injury to nerves or vessels, painful hardware or further surgeries, blood clot. Understanding these risks she agrees to proceed with surgical intervention. My recommendations for surgery for better anatomic alignment of length alignment and rotation as well as for earlier mobilization. Through shared decision making we agreed to proceed with surgical intervention. All questions answered. Consent was obtained. Procedure: Patient seen and evaluated final consent was detailed with the patient. Consent signed. Correct extremity marked. Evaluated by anesthesia. Once finished with preop, she was taken to the operative suite and underwent anesthesia per the anesthesia department. Once appropriately anesthetized she was then transferred to the bed supine and was secured and all bony prominences well-padded. This time a bump was placed under the ipsilateral right hip the right lower extremity was placed into a nonsterile tourniquet. Bone foam and blankets were used to prop the right lower extremity with prep for a right suprapatellar nail. Once correct position we did bring in large C arm to confirm no visual obstruction for fluoroscopic imaging throughout the case. Once this was performed the right lower extremity was then prepped and draped in standard orthopedic fashion. Timeout was performed. Patient received appropriate preoperative antibiotics. Next attention was then turned towards the fracture site. To assess for ability to obtain reduction. Close reduction was performed which helped to maintain length however there still was a small rotational component that was unable to achieve closed. As result I utilized a large bone tenaculum small percutaneous 2 incisions were used to obtain a near anatomic reduction with a bone clamp as well as to help maintain our reduction while placing her nail. This was confirmed in multiple orthogonal planes showing excellent length alignment and rotation of her fracture site. Next attention placed towards the suprapatellar nail. Small 5 cm incision made just superior to the pole of the patella. Sharp scalpel excision through skin subcutaneous tissue directly down to the extensor mechanism. Quad tendon was then incised longitudinally in line with the fiber to perform our arthrotomy into the joint. Next the twidox T2 alpha aiming guide was then introduced with the appropriate sleeve was advanced through the patellofemoral joint directly down over to our starting point. I then advanced a starting guidewire in appropriate position in the AP and lateral films. AP was just medial to lateral tibial spine center down the shaft and just anterior off the articular margin and the lateral film. Once this was confirmed to be appropriate length we then utilized our opening reamer. Once opening reamer was placed we then removed our sleeve and then passed a ball-tipped guidewire. Ball-tipped guidewire was then advanced carefully through the shaft past fracture site and in center center position at the ankle to distal tibia physis. We then measured the nail length which would be 360 mm. Once this was confirmed we then sequentially reamed from 9 mm up to 12.5 and 0.5 increments. We had excellent chatter at 12.5 and elected to proceed with placing a 11 mm x 360 mm nail. During her reaming we maintained our reduction with our clamp as well as gentle traction longitudinally. Next we proceeded with impacting [id number] T2 alpha nail which showed excellent maintenance of our reduction. Next we placed 2 proximal locking screws 1 in the static and 1 in the dynamic oblong hole in case of need for dynamization at a later date if needed. Drill sleeves were introduced small scalpel incision and blunt dissection to bone these were then drilled measured appropriate length and appropriate length screws were placed with excellent purchase. This completed her proximal fixation. Next attention was turned distally to placing 3 distal interlocking screws. We then placed 2 medial to lateral screws using perfect port gamble technique these were drilled measured and appropriate length screws were placed. Next we then placed an anterior to posterior locking screw using perfect port gamble technique which was subsequently drilled measured and appropriate length screw placed. This completed our fixation. Nail lay out former and guide and reduction clamp were then removed. Final images were then taken AP lateral and ankle mortise of the right ankle. This showed excellent distal fixation stress images was performed of the syndesmosis showing this was stable. Fracture site AP and lateral were then taken show stable length alignment and rotation. Final AP and lateral films of the knee were then taken showing appropriate length nail and interlocking fixation proximally. Clinical examination shows well aligned tibia with appropriate length alignment rotation. Wounds were then thoroughly irrigated with normal saline. Proximal suprapatellar incision was then closed with 0 Vicryl of the quad tendon 2-0 Vicryl for subcutaneous tissue and tasha. The rest of the small stab incisions were then closed with 2-0 Vicryl and tasha. Incisions were covered with Silverlon dressing. Cast padding then applied and a short leg AO splint was then placed with foot in neutral dorsiflexion and 6 inch Андрей wrap. Patient was then awakened from anesthesia and transferred to the hospital bed and taken to PACU in stable condition. Disposition: Patient to be nonweightbearing to the right lower extremity until follow-up given posterior malleolus fixation. PT/OT. Return to the floor. Pain control. DVT prophylaxis. We will observe patient overnight. Plan for discharge tomorrow morning. Ice and elevate as needed right lower extremity. We will follow-up in my office in 2 weeks.
--- NOTE | 2023-10-29 12:29 | XR_ITS ---
WS: [id number] XR tibia fibula RT 2V [id number] REASON FOR EXAM: postop Tibial nail FINDINGS: Tibial intramedullary [place] with transverse screw fixation proximally and distally with fixation of dis cheyanne third right tibial fracture. Surgical appliances are intact and in proper position and alignment. Fracture fragments are in proper position and alignment. Comminuted fracture of the proximal third of the right fibula. Minimal fracture fragment displacement . No significant angulation. XR/XR tibia fibula RT 2V [id number] IMPRESSION: Distal right tibial fracture with fixation without abnormality. Comminuted fracture of the right fibula as above.
[2023-10-29] MEDS: lactated ringers 1,000 ML 75 ML IV (14:32)
[2023-10-29] MEDS: TRAMadol 50 mg Tablet PO (15:57)
[2023-10-29] MEDS: calcium carb-vit d 600mg/400unit 1 Tablet 1 EACH PO (17:52)
[2023-10-29] MEDS: docusate sodium 100 mg Capsule PO (17:52)
[2023-10-29] MEDS: morphine IR 15 mg Tablet PO (17:52)
[2023-10-29] MEDS: iron polysaccharide complex 150 mg Capsule PO (17:52)
[2023-10-29] MEDS: metoprolol tartrate 25 mg Tablet PO (17:52)
[2023-10-29] MEDS: chlorhexidine gluconate 0.12% Btl 473 mL 30 ML MUCOUS MEM ×2 (17:53→20:45)
[2023-10-29] MEDS: tranexamic acid 1,000 MG/100 ML PREMIX 600 MG IV (18:50)
[2023-10-29] MEDS: trazodone 100 mg Tablet 200 MG PO (20:45)
[2023-10-29] MEDS: enoxaparin 40 mg/0.4 mL Syringe SUBCUT (20:46)
[2023-10-29] MEDS: acetaminophen 500 mg Tablet 1000 MG PO (21:46)
[2023-10-30] VITALS (9 sets, daily range): BP systolic 130–166; BP diastolic 80–93; PULSE 81–93; RESP 16–18; TEMP 36.7–36.9; O2SAT 90–98
[2023-10-30] MEDS: ceFAZolin 2,000 MG in sodium chloride 0.9% (plus) 50 ML 100 MG IV ×2 (01:14→09:58)
[2023-10-30] MEDS: TRAMadol 50 mg Tablet PO ×2 (01:17→09:57)
[2023-10-30] MEDS: lactated ringers 1,000 ML 75 ML IV (04:28)
[2023-10-30] MEDS: morphine IR 15 mg Tablet PO (05:02)
[2023-10-30] MEDS: acetaminophen 500 mg Tablet 1000 MG PO ×2 (05:03→14:29)
[2023-10-30 06:25] LABS: Basophils % 0.3 %; Eosinophils % 0.3 %; Hematocrit 38.4 % (36-47); Lymphocytes # 1.8 10^3/uL (0.8-4.8); Lymphocytes % 19.6 %; Mean Corpuscular HGB Conc 33.3 g/dL (30-55); Mean Corpuscular Hemoglobin 29.8 pg (27-33); Mean Corpuscular Volume 89.5 fl (85-98); Mean Platelet Volume 10.1 fL (7.4-10.4); Monocytes # 0.3 10^3/uL (0.2-0.9); Monocytes % 3.7 %; Neutrophils # 6.96 10^3/uL (1.8-7.7); Neutrophils % 75.8 %; Nucleated Red Blood Cells % 0 %; Platelet Count 227 10^3/cmm (157-399); Red Blood Count 4.29 10^6/uL (3.85-5.65); Red Cell Distribution Width 11.6 % (12.1-15.1); White Blood Count 9.19 10^3/uL (3.29-11.43)
[2023-10-30 06:39] LABS: Anion Gap 12.9 (5-19); Blood Urea Nitrogen 12 mg/dL (6-20); Carbon Dioxide 28 mmol/L (22-29); Chloride 102 mmol/L (98-107); Creatinine Clr Calc Pharmacy 86.6121; Glucose 115 mg/dL (65-115); Osmolality Calculated 289 mOsm/kg (285-295); Potassium 3.9 mmol/L (3.5-5.1); Sodium 139 mmol/L (136-145)
[2023-10-30] MEDS: ARIPiprazole 10 mg Tablet 5 MG PO (08:35)
[2023-10-30] MEDS: multivitamin therapeutic Tablet 1 TAB PO (08:35)
[2023-10-30] MEDS: chlorhexidine gluconate 0.12% Btl 473 mL 30 ML MUCOUS MEM ×2 (08:35→13:42)
[2023-10-30] MEDS: iron polysaccharide complex 150 mg Capsule PO (08:35)
[2023-10-30] MEDS: escitalopram 10 mg Tablet PO (08:35)
[2023-10-30] MEDS: metoprolol tartrate 25 mg Tablet PO (08:35)
[2023-10-30] MEDS: docusate sodium 100 mg Capsule PO (08:35)
[2023-10-30] MEDS: calcium carb-vit d 600mg/400unit 1 Tablet 1 EACH PO (08:35)
--- NOTE | 2023-10-30 12:05 | P.DS_ITS ---
Discharge Providers Date of Admission: 10/29/23 04:56 Date of Discharge: October 30, 2023 Attending Provider at Admission: Andres Stanton MD Attending Provider at Discharge: Abbi Bowles MD Diagnoses at Discharge Discharge Diagnosis (1) Tibia/fibula fracture: Status: Acute Reason for Visit Reason for Visit: Tib\Fib Fractual\Fall Hospital Course Hospital Course 53-year female who lives with her parents, came in after sustaining a fall, she was diagnosed with tibia-fibula fracture which was evaluated by Dr. Rossi, went for surgical intervention ight distal tibia suprapatellar tibial intramedullary nail, closed treatment of malleolus and distal fibula fracture, she did well with physical therapy, she will be discharged home with stable hemodynamics DVT prophylaxis and outpatient follow-up with Dr. Rossi. Patient is stating that she does not want to go to rehab she prefers to go home. Patient had a bowel movement in the hospital, hemodynamically stable. Physical Exam Narrative: Nonfocal neuroexam GCS 15 Pleasant cough Currently on room air Right leg covered with dressing Discharge Data Studies Completed and Pending Completed Studies During Hospitalization Category Date Time Status CT lower leg RT wo con* [id number] Stat Cat Scan 10/29/23 06:50 Completed XR tibia fibula RT 2V [id number] Routine Exams 10/29/23 05:48 Completed XR tibia fibula RT 2V [id number] Routine Exams 10/29/23 12:05 Completed XR tibia fibula RT 2V [id number] Routine Exams 10/29/23 12:29 Completed Pending at discharge Category Date Time Status Basic Metabolic Panel AM LABS Lab 10/31/23 04:00 Ordered Basic Metabolic Panel AM LABS Lab 11/01/23 04:00 Ordered Complete Blood Count w/Auto AM LABS Lab 10/31/23 04:00 Ordered Complete Blood Count w/Auto AM LABS Lab 11/01/23 04:00 Ordered Radiology Impressions Lower Extremity CT 10/29/23 06:50 IMPRESSION: 1. Recent fractures of the posterior malleolus, distal tibia, medial cuneiform, and basilar 1st and 2nd st metatarsal as detailed above. 2. Distal fibular Berg B spiral fracture appears old or subacute, as above. 3. Evidence of calcific tendinosis involving the tibialis posterior insertional fibers. 4. Small joint effusion 5. Diffuse subcutaneous soft tissue swelling and edema Tibia/Fibula X-Ray 10/29/23 12:29 IMPRESSION: Distal right tibial fracture with fixation without abnormality. Comminuted fracture of the right fibula as above. Laboratory Results WBC 9.19 10^3/uL (3.29-11.43) 10/30/23 05:42 RBC 4.29 10^6/uL (3.85-5.65) 10/30/23 05:42 Hgb 12.80 g/dL (11.27-16.99) 10/30/23 05:42 Hct 38.4 % (36-47) 10/30/23 05:42 MCV 89.5 fl (85-98) 10/30/23 05:42 MCH 29.8 pg (27-33) 10/30/23 05:42 MCHC 33.3 g/dL (30-55) 10/30/23 05:42 RDW 11.6 % (12.1-15.1) L 10/30/23 05:42 Plt Count 227 10^3/cmm (157-399) 10/30/23 05:42 MPV 10.1 fL (7.4-10.4) 10/30/23 05:42 Neut % (Auto) 75.8 % 10/30/23 05:42 Lymph % (Auto) 19.6 % 10/30/23 05:42 [place] % (Auto) 3.7 % 10/30/23 05:42 Eos % (Auto) 0.3 % 10/30/23 05:42 Baso % (Auto) 0.3 % 10/30/23 05:42 Neut # (Auto) 6.96 10^3/uL (1.8-7.7) 10/30/23 05:42 Lymph # (Auto) 1.8 10^3/uL (0.8-4.8) 10/30/23 05:42 [place] # (Auto) 0.3 10^3/uL (0.2-0.9) 10/30/23 05:42 Eos # (Auto) 0.0 10^3/uL (0.0-0.8) 10/30/23 05:42 Baso # (Auto) 0.0 10^3/uL (0.0-0.1) 10/30/23 05:42 Nucleated RBC % (auto) 0 % 10/30/23 05:42 Nucleated RBCs # 0.0 /100WBC 10/30/23 05:42 Sodium 139 mmol/L (136-145) 10/30/23 05:42 Potassium 3.9 mmol/L (3.5-5.1) 10/30/23 05:42 Chloride 102 mmol/L (98-107) 10/30/23 05:42 Carbon Dioxide 28 mmol/L (22-29) 10/30/23 05:42 Anion Gap 12.9 (5-19) 10/30/23 05:42 BUN 12 mg/dL (6-20) 10/30/23 05:42 Creatinine 0.9 mg/dL (0.5-0.9) 10/30/23 05:42 GFR Calculation 65.0 mL/min (90-130) L 10/30/23 05:42 Glucose 115 mg/dL (65-115) 10/30/23 05:42 Calculated Osmolality 289 mOsm/kg (285-295) 10/30/23 05:42 Calcium 9.0 mg/dL (8.5-10.5) 10/30/23 05:42 Phosphorus 4.7 mg/dL (2.5-4.5) H 10/29/23 06:24 Magnesium 2.1 mg/dL (1.7-2.3) 10/29/23 06:24 Total Bilirubin 0.3 mg/dL (0.15-1.2) 10/29/23 06:24 AST 19 U/L (0-32) 10/29/23 06:24 ALT 16 U/L (0-33) 10/29/23 06:24 Alkaline Phosphatase 83 U/L (35-105) 10/29/23 06:24 Total Protein 6.3 g/dL (6.6-8.7) L 10/29/23 06:24 Albumin 3.6 g/dL (3.5-5.2) 10/29/23 06:24 Globulin 2.7 g/dL (1.3-4.6) 10/29/23 06:24 Urine Color Yellow (Yellow) 10/29/23 08:44 Urine Appearance Hazy (CLEAR) A 10/29/23 08:44 Urine pH 5 (5-7) 10/29/23 08:44 Ur Specific [employer] 1.030 (1.005-1.030) 10/29/23 08:44 Urine Protein Trace (Negative) 10/29/23 08:44 Urine Glucose (UA) Norm (Normal) 10/29/23 08:44 Urine Ketones Negative (Negative) 10/29/23 08:44 Urine Blood Neg (Negative) 10/29/23 08:44 Urine Nitrate Negative (Negative) 10/29/23 08:44 Urine Bilirubin 1+ (Negative) H 10/29/23 08:44 Urine Urobilinogen Norm mg/dL (Negative) 10/29/23 08:44 Ur Leukocyte Esterase Negative (Negative) 10/29/23 08:44 Urine RBC None /hpf (0-2) 10/29/23 08:44 Urine WBC None /hpf (0-5) 10/29/23 08:44 Ur Squamous Epith Cells 0-4 /hpf (0-5) H 10/29/23 08:44 Amorphous Sediment Not Reportable 10/29/23 08:44 Urine Bacteria 2+ /hpf (NONE) H 10/29/23 08:44 Blood Type O Positive 10/29/23 08:16 Rho(D) Type Rh positive 10/29/23 08:16 Antibody Screen Negative 10/29/23 08:16 Vitals Last Vital Signs Temp 98.4 F 10/30/23 11:52 Pulse 81 10/30/23 11:52 Resp 17 10/30/23 11:52 BP 142/83 10/30/23 11:52 Pulse Ox 94 10/30/23 11:52 O2 Del Method Room Air 10/30/23 11:52 O2 Flow Rate 3 10/29/23 20:48 Discharge Plan Discharge Patient Disposition: Home Condition: Stable Prescriptions: New Eliquis 2.5 mg tablet 2.5 mg PO BID Qty: 60 0RF Continued metoprolol tartrate 25 mg tablet 25 mg PO BID sumatriptan succinate [Imitrex] 100 mg tablet See Rx Instructions PO DIRECTED Rx Instructions: 1 TAB AT ONSET OF HEADACHE AND MAY REPEAT IN 2 HOURS IF NEEDED, MAX 2 PER 24HOURS promethazine 25 mg tablet 25 mg PO Q4H PRN (Reason: Nausea And Vomiting) escitalopram oxalate [Lexapro] 10 mg tablet 10 mg PO DAILY amitriptyline 100 mg tablet 150 mg PO DAILY pantoprazole 20 mg tablet,delayed release (DR/EC) 20 mg PO BID oxybutynin chloride 5 mg tablet extended release 24hr 5 mg PO DAILY tizanidine 4 mg tablet 8 mg PO QID PRN (Reason: muscle spasticity) 30 Days Qty: 240 1RF cholecalciferol (vitamin D3) 10,000 unit capsule 10,000 unit PO .1 day magnesium oxide 400 mg magnesium tablet 400 mg PO DAILY Vitamin B-12 50 mcg tablet 1,000 mcg PO DAILY aripiprazole [Abilify] 5 mg tablet 15 mg PO DAILY morphine 15 mg tablet 15 mg PO BID PRN (Reason: pain) 30 Days Qty: 60 0RF (DME) cock up wrist splint left See Rx Instructions .Route .MEDSUPPLY Qty: 1 0RF Rx Instructions: As directed gabapentin 600 mg tablet 300 mg PO QID eszopiclone [Lunesta] 3 mg tablet 3 mg PO QPM trazodone 100 mg tablet 200 mg PO BEDTIME Discontinued diazepam 5 mg tablet 5 mg PO QPM PRN (Reason: Insomnia) Discharge Orders: Discharge Order (Routine); Ordered 10/30/23 Ordered By: Abbi Bowles Other Ambulatory Orders: DME: Walker (Order) Location: None Selected Ordered By: Hans Rossi Discharge Diet: Cardiac Discharge Activity: Use walker/crutches as instructed Patient Instructions: Opioid Safety Discharge Attestations Time Spent in Discharge Care*: greater than 30 min Quality Metrics Clinical Quality Measures [ No reported AMI, CVA or VTE this stay] Coding Level of Care Code Acute Code for [facility] Diagnoses Tibia/fibula fracture S82.209A; S82.409A
--- NOTE | 2023-10-30 12:33 | PM.PN ---
Subjective Subjective: Patient seen and examined this morning she is doing well she is already gotten up and progressed well with therapy she states her pain is much better now fractures been fixed. She is cleared by internal medicine for discharge today she is progressed well with therapy would like to discharge home. Vitals/I&O/Wt Last Vital Signs Temp 98.4 F 10/30/23 11:52 Pulse 81 10/30/23 11:52 Resp 17 10/30/23 11:52 BP 142/83 10/30/23 11:52 Pulse Ox 94 10/30/23 11:52 O2 Del Method Room Air 10/30/23 11:52 O2 Flow Rate 3 10/29/23 20:48 10/29/23 10/30/23 10/30/23 22:59 06:59 14:59 Intake Total 150 / 250 1290 / 1540 120 / 120 Balance 150 / 200 1290 / 1490 120 / 120 Weight last 48 hrs Weight 224 lb 7 oz Weight 214 lb 1 oz Weight 214 lb 1.6 oz Physical Exam Narrative: Orthopedic examination of the right lower extremity is limited secondary to patient being in the splint dressings on in place clean dry and intact splint on in place clean dry intact, she has sensation intact light touch to the toes as well as the deep superficial and peroneal nerve distally and I am able to palpate a DP pulse. Her toes are warm well-perfused brisk capillary refill less than 2 seconds. She has tenderness to palpation at the knee at incision site but dressings clean dry and intact. Data 10/30/23 05:42 10/30/23 05:42 Xray Ortho: My impression: Distal third right tibia fracture stable ORIF with tibial nail patient's fibular fracture is in good alignment but comminution noted. Radiologist's impression: Ordering Provider/Ordering MD: Hans Rossi Date of Service: 10/29/23 Procedure(s): XR tibia fibula RT 2V 99652 Accession Number(s): [id number] Report Number: [id number] WS: [id number] X[place] fibula RT 2 03438 REASON FOR EXAM: postop Tibial nail FINDINGS: Tibial intramedullary [place] with transverse screw fixation proximally and distally with fixation of distal third right tibial fracture. Surgical appliances are intact and in proper position and alignment. Fracture fragments are in proper position and alignment. Comminuted fracture of the proximal third of the right fibula. Minimal fracture fragment displacement. No significant angulation. XR/XR tibia fibula RT 2V [id number] IMPRESSION: Distal right tibial fracture with fixation without abnormality. Comminuted fracture of the right fibula as above. A&P Assessment and plan (1) Tibia/fibula fracture: Plan Maintain splint until follow-up Change dressing as needed Regular diet Complete postoperative antibiotics DVT prophylaxis X-rays reviewed PT Nonweightbearing to right lower extremity May tolerate knee range of motion as tolerated Stable for discharge orthopedic standpoint Patient overall is progressing well postoperatively she is ready for discharge today. I discussed this with the hospitalist and patient is cleared from orthopedic standpoint to discharge. Orthopedic surgery team will sign off patient at this time follow peripherally if there is any question pertaining patient care for her to contact orthopedics on-call. Will discharge patient on pain medication as well as DVT prophylaxis given her being nonweightbearing. She will follow-up with orthopedic office in 2 weeks. Patient understands and agrees with current plan. All questions answered. Attestations Medical Necessity Statement*: Status post ORIF tibial nail right tib-fib fracture Coding Level of Care Code Acute Code for [facility] Fwd Diagnoses Tibia/fibula fracture S82.209A; S82.409A Time Spent (min) 30
[2023-10-30] MEDS: morphine 4 mg/mL SDV 1 mL IVP (13:52)
--- NOTE | 2023-10-30 17:54 | PC.NURSE ---
Patient Michelle called into [facility]
== END 2023-10-30 17:55 | disposition home health service (06) ==
PROVIDERS: Student in an Organized Health Care Education/Training Program; Admitting Provider Internal Medicine; Visit Provider Internal Medicine
PROC: (CPT 27759; principal; 2023-10-29 10:00)
DX: S82.201A Unspecified fracture of shaft of right tibia, initial encounter for closed fracture (principal); S82.401A Unspecified fracture of shaft of right fibula, initial encounter for closed fracture; S82.891A Other fracture of right lower leg, initial encounter for closed fracture; X58.XXXA Exposure to other specified factors, initial encounter; J44.9 Chronic obstructive pulmonary disease, unspecified; I10 Essential (primary) hypertension; K21.9 Gastro-esophageal reflux disease without esophagitis; Z79.891 Long term (current) use of opiate analgesic; M79.7 Fibromyalgia; F17.210 Nicotine dependence, cigarettes, uncomplicated
CPT/HCPCS: 27759; 27781; 36415; 73590; 73700; 76000; 80048; 80053; 81001; 83735; 84100; 85025; 86850; 86900; 96372; 97161; 97165; C1713; G0378; G0379; J0131; J0690; J1100; J1170; J1650; J1885; J2250; J2270; J2371; J2405; J2704; J3010; J7030; J7120; J7799

== ENCOUNTER 2023-11-12 06:00 | Outpatient (CLI) | payer MEDICARE, MEDICAID, SELFPAY | END 2023-11-12 06:01 | disposition home or self-care (01) | LOC: SPT 11-15 09:47 | PROVIDERS: Visit Provider Physician Assistant | DX: Z46.89 Encounter for fitting and adjustment of other specified devices (principal); S82.201D Unspecified fracture of shaft of right tibia, subsequent encounter for closed fracture with routine healing; X58.XXXD Exposure to other specified factors, subsequent encounter | CPT/HCPCS: 99024; L4361 ==

== ENCOUNTER → 2023-11-12 11:09 | Outpatient (BNVA) | payer MEDICARE, MEDICAID, SELFPAY | PROVIDERS: Visit Provider Physician Assistant | DX: Z96.7 Presence of other bone and tendon implants (principal); Z98.890 Other specified postprocedural states; Z87.81 Personal history of (healed) traumatic fracture; S82.201A Unspecified fracture of shaft of right tibia, initial encounter for closed fracture; S82.401A Unspecified fracture of shaft of right fibula, initial encounter for closed fracture; X58.XXXA Exposure to other specified factors, initial encounter | CPT/HCPCS: 73590 ==

== ENCOUNTER → 2023-12-17 14:08 | Outpatient (BNVA) | payer MEDICARE, MEDICAID, SELFPAY | PROVIDERS: Visit Provider Physician Assistant | DX: Z98.890 Other specified postprocedural states; S82.201D Unspecified fracture of shaft of right tibia, subsequent encounter for closed fracture with routine healing; S82.401D Unspecified fracture of shaft of right fibula, subsequent encounter for closed fracture with routine healing; X58.XXXD Exposure to other specified factors, subsequent encounter | CPT/HCPCS: 73590; 99024 ==

== ENCOUNTER → 2023-12-29 09:43 | Outpatient (BNVA) | payer OTHER, MEDICAID, SELFPAY | PROVIDERS: PCP Internal Medicine; Visit Provider Physician Assistant | DX: S82.201D Unspecified fracture of shaft of right tibia, subsequent encounter for closed fracture with routine healing; S82.401D Unspecified fracture of shaft of right fibula, subsequent encounter for closed fracture with routine healing; Z98.890 Other specified postprocedural states; X58.XXXD Exposure to other specified factors, subsequent encounter | CPT/HCPCS: 73590 ==

== ENCOUNTER → 2024-02-10 10:18 | Outpatient (BNVA) | payer OTHER, MEDICAID, SELFPAY | PROVIDERS: PCP Internal Medicine; Visit Provider Physician Assistant | DX: Z98.890 Other specified postprocedural states; Z87.81 Personal history of (healed) traumatic fracture; S82.201D Unspecified fracture of shaft of right tibia, subsequent encounter for closed fracture with routine healing; S82.401D Unspecified fracture of shaft of right fibula, subsequent encounter for closed fracture with routine healing; X58.XXXD Exposure to other specified factors, subsequent encounter | CPT/HCPCS: 73590 ==

== ENCOUNTER → 2025-01-11 07:57 | Outpatient (BNVA) | payer OTHER, MEDICAID, SELFPAY | PROVIDERS: PCP Student in an Organized Health Care Education/Training Program; Visit Provider Podiatrist Foot & Ankle Surgery | DX: S93.321A Subluxation of tarsometatarsal joint of right foot, initial encounter (principal); W22.8XXA Striking against or struck by other objects, initial encounter | CPT/HCPCS: 99204 ==

== ENCOUNTER 2025-01-15 13:13 | Outpatient (CLI) | payer OTHER, MEDICAID, SELFPAY ==
--- NOTE | 2025-01-15 17:15 | CT_ITS ---
WS: [id number] CT RIGHT FOOT, NONCONTRAST HISTORY: Right foot fracture Technique: All CT scans at [facility] use at least one of these dose optimization techniques: automated exposure control; mA and/or kV adjustment per patient size (includes targeted exams where dose is matched to clinical indication); or iterative reconstruction. DLP: 154.75 mGy.cm COMPARISON: Radiograph 12/25/2024 Fusion hardware noted in the distal tibia. No acute fracture in the distal tibia. There are several small well-corticated osseous densities in the expected location of the anterior inferior tibiofibular ligament. These are well- corticated and not likely related to the acute injury. First metacarpal: No acute fracture. There is a well-corticated osseous density along the plantar surface of the first metatarsal which is probably old injury. Second metatarsal: Acute fracture extends through the proximal metatarsal with intra-articular extension. There are several small fragments but no displacement. Third, fourth and fifth metacarpals are intact. Cuboid and the cuneiforms are normal. Hypertrophic osteophyte from the second cuneiform. Calcaneus and talus are intact. CT/CT foot RT wo con* [id number] IMPRESSION: 1. Nondisplaced fracture involving the proximal second metatarsal with intra-a rticular extension. There are multiple small osseous fragments along the dorsal surface of the fracture. 2. No additional fractures are identified. 3. Numerous well-corticated osseous fragments in the expected location of the anterior tibiofibular ligament. Likely from an old injury.
== END 2025-01-15 13:14 | disposition home or self-care (01) ==
LOC: RAD 13:14
PROVIDERS: PCP Student in an Organized Health Care Education/Training Program; Visit Provider Podiatrist Foot & Ankle Surgery
DX: S92.324A Nondisplaced fracture of second metatarsal bone, right foot, initial encounter for closed fracture (principal); S93.621A Sprain of tarsometatarsal ligament of right foot, initial encounter; X58.XXXA Exposure to other specified factors, initial encounter
CPT/HCPCS: 73700

== ENCOUNTER → 2025-01-17 11:01 | Outpatient (BNVA) | payer OTHER, MEDICAID, SELFPAY | PROVIDERS: PCP Student in an Organized Health Care Education/Training Program; Visit Provider Podiatrist Foot & Ankle Surgery | DX: S93.321A Subluxation of tarsometatarsal joint of right foot, initial encounter (principal); X58.XXXA Exposure to other specified factors, initial encounter | CPT/HCPCS: 99214 ==

== ENCOUNTER 2025-02-12 06:02 | Day surgery (SDC) | payer OTHER, MEDICAID, SELFPAY ==
[2025-02-12] VITALS (10 sets, daily range): BP systolic 115–137; BP diastolic 68–109; PULSE 85–99; RESP 14–18; TEMP 36.1–36.7; O2SAT 93–99; BMI 29.0
--- NOTE | 2025-02-12 | XR_ITS ---
WS: [id number] Right foot, C-arm fluoroscopy views, 02/12/2025 Clinical Data: OR PICS Comparison: Right foot, 12/25/2024 Findings: The oblique fracture of the base of the right second metatarsal is seen. Dr. Haywood repairs of the fracture with a dorsal plate. XR/XR foot RT min 3V* [id number] Impression: Internal fixation of proximal right second metatarsal fracture.
--- NOTE | 2025-02-12 06:51 | W.PM.OPSFHP ---
Same Day Surgery H&P Indication for Procedure/HPI DATE OF PROCEDURE: February 12, 2025 CHIEF COMPLAINT/INDICATIONFOR SURGICAL PROCEDURE: Right foot lisfranc injury PREOP DIAGNOSIS: Right foot Lisfranc injury PLANNED PROCEDURE: Operation Date: 02/12/25 07:00 Proposed Procedures p Right foot second Tarsometatarsal Joint Arthrodesis(Right) - Oli Haywood DPM Medications/Allergies* Home Medications ?Medication ?Instructions ?Recorded ?Confirmed ?Type escitalopram oxalate 10 mg tablet 10 mg PO DAILY 08/07/19 02/09/25 History (Lexapro) promethazine 25 mg tablet 25 mg PO Q4H PRN Nausea And 08/07/19 02/09/25 History Vomiting sumatriptan succinate 100 mg See Rx Instructions PO DIRECTED 08/07/19 02/09/25 History tablet (Imitrex) cholecalciferol (vitamin D3) 250 10,000 unit PO .1 day 10/03/19 02/09/25 History mcg (10,000 unit) capsule pantoprazole 20 mg tablet,delayed 20 mg PO BID 07/19/20 02/09/25 History release oxybutynin chloride 5 mg 5 mg PO DAILY 05/28/21 02/09/25 History tablet,extended release 24 hr amitriptyline 100 mg tablet 150 mg PO DAILY 04/09/23 02/09/25 History aripiprazole 5 mg tablet (Abilify) 15 mg PO DAILY 04/09/23 02/09/25 History cyanocobalamin (vitamin B-12) 50 1,000 mcg PO DAILY 04/09/23 02/09/25 History mcg tablet (Vitamin B-12) eszopiclone 3 mg tablet (Lunesta) 3 mg PO QPM 04/09/23 02/09/25 History gabapentin 600 mg tablet 300 mg PO QID neuropathy 04/09/23 02/09/25 History magnesium oxide 400 mg PO DAILY 04/09/23 02/09/25 History trazodone 100 mg tablet 200 mg PO BEDTIME 10/29/23 02/09/25 History biotin 5,000 mcg chewable tablet mcg PO 01/11/25 01/17/25 History hydralazine 25 mg tablet 25 mg PO DAILY 02/09/25 02/09/25 History Allergies/Adverse Reactions Allergy/AdvReac Type Severity Reaction Status Date / Time lisinopril AdvReac HEART RACES Verified 02/12/25 06:24 Sulfa (Sulfonamide AdvReac STOMACH Verified 02/12/25 06:24 Antibiotics) PAIN Pertinent History/Comorbid Conditions* Medical History (Updated 01/11/25 @ 08:23 by Oli Haywood DPM) Hypertension Tibia/fibula fracture Long-term current use of opiate analgesic Pain management contract signed Common migraine Fibromyalgia Tobacco abuse Chronic left shoulder pain Lumbar spondylosis Chronic radicular low back pain Hx of fracture of clavicle (~01/2008) SURGERY [facility] [place] [facility] Surgical History (Updated 11/19/23 @ 12:05 by TAURUS Valera) Status post carpal tunnel release Left wrist. Date of surgery: April 16, 2023 Surgeon: Dr. Serena Grijalva MD Hx of hysterectomy (~1998) Hx of tubal ligation Hx of cholecystectomy (~1999) Hx of oral surgery (~07/21/19) all teeth removed Family History (Updated 08/07/19 @ 13:49 by Darlyn Jean Baptiste RN) Cancer Family/Other STOMACH Hypertension Denies family history of Anesthesia complication Bleeding disorder Social History Smoking and tobacco/nicotine status: current some day tobacco/nicotine user cigarettes Packs smoked per day: 0.5 [ Other cigarette details: Using chantix BID] Alcohol intake: never Substance/Drug Use: never Lives independently: Yes Current occupation: disabled Pertinent Exam Findings alert, oriented x 3, clear to auscultation bilaterally, regular rate & rhythm, operative site marked and procedure specific exam findings GENERAL: A&O x 3 VASCULAR: DP/PT pulses palpable 2/4 with CFT intact, <3seconds to distal digits DERMATOLOGICAL: Skin turgor and temperature is within normal limits. No open wounds or skin lesions noted. Nails are well manicured and normotrophic. No interdigital maceration noted. MUSCULOSKELETAL: pain with palpation of right 2nd tarsometatarsal joint articulation NEUROLOGICAL: Neurological sensation to the affected foot and ankle is present through L4-S1 dermatomes with no hyper/hypoesthesias, negative Tinel or Valleix's sign CARDIO: Regular rate and rhythm. Normal S1, S2. No murmurs, rubs or gallops RESPIRATORY: Normal respiratory effort. No wheezing or crackles. Clear to auscultation Recommendations Surgery/Procedure today Coding Level of Care Code Acute Code for Chg Fwd
--- NOTE | 2025-02-12 07:03 | ANES.PREANE2 ---
Pre-Anesthetic Assessment Height/Weight: Height 1.7 m Weight 83.915 kg Temp Pulse Resp BP Pulse Ox O2 Del Method 97.8 F 98 18 116/82 93 Room Air 02/12/25 06:26 02/12/25 06:26 02/12/25 06:26 02/12/25 06:26 02/12/25 06:26 02/12/25 06:28 Preop Diagnosis: Right foot Lisfranc injury Operation Date: 02/12/25 07:00 Proposed Procedures p Right foot second Tarsometatarsal Joint Arthrodesis(Right) - Oli Haywood DPM Familial anesthetic complications: none Was Clonidine taken within 24 hours: N/A Last intake: Intake Last Liquid Date 02/11/25 Last Liquid Time 23:00 Last Solid Date 02/11/25 Last Solid Time 19:00 Social Tobacco and No alcohol Exam alert, oriented x 3, clear to auscultation bilaterally and regular rate & rhythm Airway Mallampati: Class II GI Gastroesophageal Reflux Disease Anesthetic Plan ASA status: 2 Anesthesia: General and Regional (specify below) Risk of > 500 ml blood loss (7ml/kg in children): No Medications/Allergies Home Medications ?Medication ?Instructions ?Recorded ?Confirmed ?Last Taken ?Type escitalopram oxalate 10 mg tablet 10 mg PO DAILY 08/07/19 02/09/25 02/11/25 History (Lexapro) promethazine 25 mg tablet 25 mg PO Q4H PRN Nausea And 08/07/19 02/09/25 02/09/25 History Vomiting sumatriptan succinate 100 mg See Rx Instructions PO DIRECTED 08/07/19 02/09/25 04/12/23 History tablet (Imitrex) cholecalciferol (vitamin D3) 250 10,000 unit PO .1 day 10/03/19 02/09/25 02/11/25 History mcg (10,000 unit) capsule pantoprazole 20 mg tablet,delayed 20 mg PO BID 07/19/20 02/09/25 02/11/25 History release oxybutynin chloride 5 mg 5 mg PO DAILY 05/28/21 02/09/25 02/11/25 History tablet,extended release 24 hr tizanidine 4 mg tablet 8 mg (2 x 4 mg) PO QID PRN muscle 05/28/21 02/09/25 02/11/25 Rx spasticity 30 days #240 tabs morphine 15 mg immediate release 15 mg PO BID PRN pain 30 days #60 07/23/21 02/09/25 02/09/25 Rx tablet tabs amitriptyline 100 mg tablet 150 mg PO DAILY 04/09/23 02/09/25 02/11/25 History aripiprazole 5 mg tablet (Abilify) 15 mg PO DAILY 04/09/23 02/09/25 02/11/25 History cyanocobalamin (vitamin B-12) 50 1,000 mcg PO DAILY 04/09/23 02/09/25 02/11/25 History mcg tablet (Vitamin B-12) eszopiclone 3 mg tablet (Lunesta) 3 mg PO QPM 04/09/23 02/09/25 02/11/25 History gabapentin 600 mg tablet 300 mg PO QID neuropathy 04/09/23 02/09/25 02/11/25 History magnesium oxide 400 mg PO DAILY 04/09/23 02/09/25 02/11/25 History trazodone 100 mg tablet 200 mg PO BEDTIME 10/29/23 02/09/25 02/11/25 History biotin 5,000 mcg chewable tablet mcg PO 01/11/25 01/17/25 02/11/25 History Knee Scooter #1 ea 01/17/25 01/17/25 Unknown Rx hydralazine 25 mg tablet 25 mg PO DAILY 02/09/25 02/09/25 02/11/25 History hydrocodone 5 mg-acetaminophen 325 1 tab PO Q6H PRN pain #28 tabs 02/12/25 Unknown Rx mg tablet Allergies Allergy/AdvReac Type Severity Reaction Status Date / Time lisinopril AdvReac HEART RACES Verified 02/12/25 06:24 Sulfa (Sulfonamide AdvReac STOMACH Verified 02/12/25 06:24 Antibiotics) PAIN PFSH Anesthesia Medical History Hypertension Tibia/fibula fracture Long-term current use of opiate analgesic Pain management contract signed Common migraine Fibromyalgia Tobacco abuse Chronic left shoulder pain Lumbar spondylosis Chronic radicular low back pain Hx of fracture of clavicle (~01/2008) SURGERY [facility] Surgical History Status post carpal tunnel release Left wrist. Date of surgery: April 16, 2023 Surgeon: Dr. Serena Grijalva MD Hx of hysterectomy (~1998) Hx of tubal ligation Hx of cholecystectomy (~1999) Hx of oral surgery (~07/21/19) all teeth removed Family History Family/Other Cancer STOMACH Other Hypertension Denies family history of Anesthesia complication Bleeding disorder Social History Smoking and tobacco/nicotine status: current some day tobacco/nicotine user cigarettes Packs smoked per day: 0.5 [ Other cigarette details: Using chantix BID] Alcohol intake: never Substance/Drug Use: never Lives independently: Yes Current occupation: disabled Anesthesia Procedures Nerve Block Nerve Block 1: Main Anesthesia: general anesthesia Time Out Performed: Yes Consent: requested by attending/covering physician, from patient, from other, risks and benefits reviewed and patient agrees to proceed Nerve block location: popliteal (R) Anesthesia monitors applied: pulse oximetry, EKG, BP cuff and oxygen Nerve block position: supine Anesthetic Used: ropivicaine 0.5% (30 ml) and with decadron (4 mg) Ultrasound used to: recognize landmarks Interscalene/Femoral BLK: 4 stimuplex 21 g needle used for position and inplane approach, visualize local anesthetic spread and no vascular puncture identified Injection: neg aspiration of heme Patient Tolerated Procedure: well Complications: none
[2025-02-12] MEDS: ceFAZolin 2,000 mg SDV 2000 MG IVP (07:06)
--- NOTE | 2025-02-12 08:01 | PM.OP ---
Operative Report Date of procedure: February 12, 2025 Surgeon: Oli Haywood DPM Procedure: Date of procedure: 02/12/2025 Pre-op diagnosis: Right foot Lisfranc fracture Post-op diagnosis: Same Post-op findings: Second tarsal base fracture extending intra-articular tarsometatarsal joint Procedure done: Right foot second tarsometatarsal joint arthrodesis CPT 34486 Implants: 15 x 15 Arthrex nitinol staple Specimens removed: None Surgeon: Dr. Oli Haywood DPM Dermatology Teacher: Vasquez Estimated blood loss: 5 cc Tourniquet time: 30 minutes Complications: None Patient is a 54-year-old female that has a history of right foot Lisfranc fracture. The patient has had the aforementioned chief complaint for some time. Conservative treatment measures have been attempted and the patient has opted for surgical intervention at this time. A lengthy discussion regarding the procedure, including risks and complications has been had with the patient and is noted in the recent clinic note. Written and verbal consent have been obtained. All patient questions have been answered to the patient?s satisfaction. No written or verbal guarantees have been given or implied. The patient has been NPO since midnight. The history has been reviewed and the history and physical is current. The signed consent was confirmed and placed in the patient chart. Patient imaging has been reviewed and is consistent with the diagnosis. Under mild sedation, the patient was brought into the operating room and placed on the table in the supine position. IV antibiotics were given by the anesthesia team as preoperative surgical prophylaxis. General sedation was then performed by the anesthesiateam. A pneumatic tourniquet was then placed about the right ankle. A popliteal block was performed by the anesthesia department. The operative extremity was then prepped and draped in the usual fashion. The extremity was then elevated and exsanguinated before the tourniquet was inflated to 250 mmHg. After inflation, the following procedure was then performed. Attention was directed to the right foot where a 4 cm incision was made overlying the second tarsometatarsal joint using a #15 blade. Dissection was carried down through subcutaneous and superficial fascia. Care was taken to avoid adjacent neurovascular bundle which was identified and retracted out of the operative field. Second tarsometatarsal joint capsule was evaluated and incised using a #15 blade to expose the underlying joint. Second metatarsal base fracture was also noted to be extending from distal medial to proximal lateral entering the second tarsometatarsal joint. Osteotome was used to clean out fibrotic adhesions of fracture as well as to prep the second tarsometatarsal joint in preparation for arthrodesis. Articular cartilage was removed using an osteotome and curette. The site was irrigated with sterile saline. The joint was then prepped using a joint resurfacing tool. Next a 15 x 15 mm nitinol staple from [employer] was placed over the second tarsometatarsal joint after drilling in preparation for the staple. Good positioning of orthopedic hardware was noted clinically as well as on C-arm imaging. Site was irrigated with copious amounts of sterile saline before attention was directed to closure. Deep tissue and subcuticular closure were closed using 4-0 Vicryl. Skin closed with 4-0 nylon in running interlocking fashion. The tourniquet was let down good hyperemic response was noted to all digits of the right foot. The incision site was dressed with Xeroform, 4 x 4 gauze, Kerlix, Андрей bandage. The patient tolerated the procedure and anesthesia well and without complication. The patient was transported from the operating room to the recovery room with vital signs stable and vascular status intact to all digits of the right foot. The patient was given both written and verbal instructions to remain nonweightbearing to the operative extremity, to keep dressings/splint clean, dry and intact and to take pain medication as directed. The patient will follow-up in the outpatient setting at their scheduled appointment. The patient was discharged with my personal number and was instructed to call if any questions or issues should arise. They were discharged home once anesthesia criteria was met.
[2025-02-12] MEDS: HYDROcodone-acetaminophen 5-325 mg Tablet 1 TAB PO (09:10)
--- NOTE | 2025-02-12 09:25 | ANE.PACU2 ---
Inpatient post-anesthesia follow up: Airway intact: Yes Vital signs: Temperature 98.1 F Pulse Rate 86 Respiratory Rate 17 Blood Pressure 137/109 Pulse Oximetry 98 Oxygen Delivery Me thod Room Air Oxygen Flow Rate 6 Fraction of Inspir ed Oxygen Hydration adequate: Yes Nausea and vomiting: No Pain level: 1 Mental status: Baseline
== END 2025-02-12 09:28 | disposition home or self-care (01) ==
PROVIDERS: PCP Student in an Organized Health Care Education/Training Program; Visit Provider Podiatrist Foot & Ankle Surgery
PROC: (CPT 28740; principal; 2025-02-12 07:00)
DX: S93.324A Dislocation of tarsometatarsal joint of right foot, initial encounter (principal); X58.XXXA Exposure to other specified factors, initial encounter; K21.9 Gastro-esophageal reflux disease without esophagitis; Z79.891 Long term (current) use of opiate analgesic; I10 Essential (primary) hypertension; M79.7 Fibromyalgia; F17.210 Nicotine dependence, cigarettes, uncomplicated
CPT/HCPCS: 28740; 73630; 76000; C1713; J0690; J1100; J1885; J2250; J2371; J2405; J2704; J2795; J3010; J7030; J9999

== ENCOUNTER → 2025-02-27 14:57 | Outpatient (BNVA) | payer OTHER, MEDICAID, SELFPAY | PROVIDERS: PCP Student in an Organized Health Care Education/Training Program; Visit Provider Podiatrist Foot & Ankle Surgery | DX: S93.321D Subluxation of tarsometatarsal joint of right foot, subsequent encounter (principal); X58.XXXD Exposure to other specified factors, subsequent encounter | CPT/HCPCS: 73630; 99024 ==

== ENCOUNTER → 2025-03-26 13:10 | Outpatient (BNVA) | payer OTHER, MEDICAID, SELFPAY | PROVIDERS: PCP Student in an Organized Health Care Education/Training Program; Visit Provider Podiatrist Foot & Ankle Surgery | DX: Z98.890 Other specified postprocedural states (principal); S93.326A Dislocation of tarsometatarsal joint of unspecified foot, initial encounter; X58.XXXA Exposure to other specified factors, initial encounter | CPT/HCPCS: 73630; 99024; 99213 ==

== ENCOUNTER → 2025-04-02 09:03 | Outpatient (BNVA) | payer OTHER, MEDICAID, SELFPAY | PROVIDERS: PCP Student in an Organized Health Care Education/Training Program; Referring Provider Student in an Organized Health Care Education/Training Program; Visit Provider Anesthesiology Pain Medicine | DX: M54.9 Dorsalgia, unspecified (principal); M41.9 Scoliosis, unspecified | CPT/HCPCS: 99204 ==

== ENCOUNTER → 2025-04-18 13:40 | Outpatient (BNVA) | payer OTHER, MEDICAID, SELFPAY | PROVIDERS: PCP Student in an Organized Health Care Education/Training Program; Visit Provider Anesthesiology Pain Medicine | DX: M79.18 Myalgia, other site (principal); M41.34 Thoracogenic scoliosis, thoracic region; M54.9 Dorsalgia, unspecified | CPT/HCPCS: 20553; 99214; J1010; J3490 ==

== ENCOUNTER → 2025-06-06 12:20 | Outpatient (BNVA) | payer OTHER, MEDICAID, SELFPAY | PROVIDERS: PCP Student in an Organized Health Care Education/Training Program; Referring Provider Student in an Organized Health Care Education/Training Program; Visit Provider Obstetrics & Gynecology | DX: R35.0 Frequency of micturition (principal) | CPT/HCPCS: 81000 ==